=== PATIENT | male | born 1960 | race Caucasian/White ===

== ENCOUNTER 2024-05-28 14:41 | Emergency (ER) | payer OTHER, SELFPAY ==
[2024-05-28 14:54] VITALS: BP 132/67; PULSE 94; RESP 18; TEMP 36.8; O2SAT 94
[2024-05-28 15:15] LABS: EDCOVIDSCREEN Negative (Negative); EDINFLUASCREEN Positive (Negative); EDINFLUBSCREEN Negative (Negative)
--- NOTE | 2024-05-28 15:47 | ED_ITS ---
HPI - General Adult General Chief complaint: Upper Respiratory Infection Stated complaint: Congestion Source: patient Mode of arrival: ambulatory Limitations: no limitations History of Present Illness HPI narrative: Patient presents for evaluation of what he believes to be the common cold. He reports generalized body aches and sinus congestion for the last 3 days. Denies any fever, chills, nausea, vomiting, diarrhea, cough, shortness of breath. He is not aware of any sick contacts. He has not taken any medication to assist with the symptoms. He does smoke cigars. Related Data Allergies Allergy/AdvReac Type Severity Reaction Status Date / Time No Known Allergies Allergy Verified 05/28/24 14:57 Review of Systems Review of Systems: CONSTITUTIONAL: Denies fever, chills, or sweats. EYES: Denies visual changes, redness, or discharge. ENT: Reports sinus congestion. Denies rhinorrhea, sore throat, or otalgia. CARDIOVASCULAR: Denies chest pain, palpitations, or edema. RESPIRATORY: Denies cough or dyspnea. GASTROINTESTINAL: Denies abdominal pain, nausea, vomiting, or diarrhea. GENITOURINARY: Denies dysuria or hematuria. SKIN: Denies rash or itching. MUSCULOSKELETAL: Reports generalized body NEUROLOGIC: Denies headache, numbness, dizziness, or weakness. PSYCHIATRIC: Denies anxiety or depression. [facility] Past Medical History Medical History No pertinent past medical history Surgical History Surgical History No pertinent past surgical history Family History Family History Mother Family history non-contributory Social History Social History Smoking status: Current every day smoker Tobacco type: cigars Substance use: never Gender identity (if verbalized by the patient): Male Spiritual care concerns: No Exam Narrative: GENERAL: Well-appearing, well-nourished, and in no acute distress. HEAD: Normocephalic, atraumatic. EYES: PERRLA and EOMI. ENT: Nares clear, no rhinorrhea or epistaxis. Mucous membranes moist. Oropharynx without tonsillar hypertrophy exudate or other lesions. Bilateral TMs pearly lassiter nonbulging NECK: Supple. No adenopathy or masses. No carotid bruits or JVD CHEST: Clear to auscultation. No respiratory distress. No wheezes rales or rhonchi HEART: Regular rate and rhythm. No murmur heard. Normal peripheral pulses. ABDOMEN: Soft, nontender, nondistended, normal active bowel sounds. EXTREMITIES: Normal range of motion. No edema. SKIN: Warm, dry, no rash. NEURO: No focal deficits. Alert and oriented x3. PSYCH: Normal mood and affect. Course Course Emergency Course: This is a 64-year-old male who presented for evaluation of sinus congestion body aches. Influenza A positive. Will treat with Tamiflu. Increase hydration. Wcyn-emt-kinqzzt agents for symptom management. Follow up with primary provider. Go to the ER for worsening symptoms. Patient in agreement with plan of care. Level of Care: Express Care Visit Vital Signs Vital signs: Vital Signs Temperature 36.8 C 05/28/24 14:54 Pulse Rate 94 05/28/24 14:54 Respiratory Rate 18 05/28/24 14:54 Blood Pressure 132/67 05/28/24 14:54 Pulse Oximetry 94 05/28/24 14:54 Oxygen Delivery Room Air 05/28/24 14:54 Temperature 36.8 C 05/28/24 14:54 Pulse Rate 94 05/28/24 14:54 Respiratory Rate 18 05/28/24 14:54 Blood Pressure 132/67 05/28/24 14:54 Pulse Oximetry 94 05/28/24 14:54 Oxygen Delivery Room Air 05/28/24 14:54 Medical Decision Making Vital Signs Vital Signs: Vital Signs Temperature 36.8 C 05/28/24 14:54 Pulse Rate 94 05/28/24 14:54 Respiratory Rate 18 05/28/24 14:54 Blood Pressure 132/67 05/28/24 14:54 Pulse Oximetry 94 05/28/24 14:54 Oxygen Delivery Room Air 05/28/24 14:54 Temperature 36.8 C 05/28/24 14:54 Pulse Rate 94 05/28/24 14:54 Respiratory Rate 18 05/28/24 14:54 Blood Pressure 132/67 05/28/24 14:54 Pulse Oximetry 94 05/28/24 14:54 Oxygen Delivery Room Air 05/28/24 14:54 Lab Data Labs: Lab Results 05/28/24 Range/Units 15:12 POC Influenza A Ag Positive (Negative) POC Influenza B Ag Negative (Negative) POC SARS CoV-2 Ag Negative (Negative) Discharge Plan Discharge Clinical Impression: Influenza A Patient Disposition: Home, Self-Care Condition: Stable Instructions: Antibiotic Form, Influenza (ED) Patient Language: Telugu Prescriptions: New oseltamivir [Tamiflu] 75 mg capsule 75 mg PO Q12H 5 Days Qty: 10 0RF Follow-up/Referrals: Emil Cormier MD [Physician] - Time of Disposition: 15:46
--- OUTSIDE RECORDS SUMMARY | 2024-05-28 17:05 | XMS_ITS | Referral Summary ---
Author Organization [facility] Address [address] [place] [address] Care Team Providers Care Steaming Machine Operator Name Role Phone SubhashAsha gary Unavailable Unavailable No, Physician Primary Care Provider [phone] Encounters Date Type Department Care Team Description 03/15/2024 11:26 PM AUTOMATIC BUFFING WHEEL FORMER - 03/18/2024 4:43 PM [facility] Hospital Encounter [facility] [address] [place] [address] Franklin Gastelum MD Abegunde, MD Fatmata Mccann Huzaifa, MD Sargsyan, Narine, MD Dizziness (Primary Dx); Generalized weakness Discharge Disposition: Left Against Medical Advice from Last 3 Months Allergies No known active allergies Medications buprenorphine-na loxone (SUBOXONE) 4-[address] 1 Film under the tongue 2 (two) times a day for 4 doses 4 Film 05/23/2021 Active Active Problems Problem Noted Date Diagnosed Date Dizziness 03/16/2024 Encounter for removal of al 10/30/2023 Poison dominic dermatitis 10/30/2023 Closed fracture of right distal fibula Opioid withdrawal 06/19/2019 Small bowel obstruction (CMS/HCC) 01/23/2019 Chronic midline low back pain without sciatica 0 04/05/2018 Chewing tobacco nicotine dependence, uncomplicat ed 04/13/2016 Chronic pain 12/13/2012 Hyperlipidemia 05/16/2011 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 12/03/2010 Back pain 07/03/2008 Abdominal pain, epigastric Immunizations Immunization Administration Dates Next Due Tdap 10/20/2023 Social History Tobacco Use Types Packs/Day Years Used Date Smoking Tobacco: Every Day Cigarettes Smokeless Tobacco: Never Tobacco Cessation:Ready to Q uit: Not Asked; Counseling Given: Not Answered Alcohol Use Standard Drinks/Week Comments No 0 (1 standard drink = 0.6 oz pur e alcohol) [facility] Utilities Answer Date Recorded In the past 12 months has th e electric, gas, oil, or water company threatened to shut off services in your home? No 03/18/2024 Social Connection and Isolation Panel [NHANES] A nswer Date Recorded In a typical week, how many times do you talk on the phone with family, friends, or neighbors? Three times a week 03/18/2024 How often do you get togethe r with friends or relatives? Once a week 03/18/2024 How often do you attend chur ch or evangelical services? Never 03/18/2024 Do you belong to any clubs o r organizations such as sikh groups, unions, fraternal or athletic groups, or school groups? No 03/18/2024 How often do you attend meet ings of the clubs or organizations you belong to? Never 03/18/2024 Are you , , di vorced, , never , or living with a partner? Patient declined 03/18/2024 AUDIT-C Answer Date Recorded Q1: How often do you have a drink containing alc ohol? Monthly or less 03/16/2024 Q2: How many drinks containi ng alcohol do you have on a typical day when you are drinking? 1 or 2 03/16/2024 Q3: How often do you have si x or more drinks on one occasion? Never 03/16/2024 Overall Financial Resource Strain (CARDIA) Answe r Date Recorded How hard is it for you to pa y for the very basics like food, housing, medical care, and heating? Somewhat hard 03/18/2024 PHQ-2 Answer Date Recorded PHQ-2 Score 2 01/23/2019 Hunger Vital Sign Answer Date Recorded Within the past 12 months, y ou worried that your food would run out before you got the money to buy more. Never true 03/18/20 24 Within the past 12 months, t he food you bought just didn't last and you didn't have money to get more. Never true 03/18/2024 PRAPARE - Transportation Answer Date Re corded In the past 12 months, has l ack of transportation kept you from medical appointments or from getting medications? No 03/03 In the past 12 months, has l ack of transportation kept you from meetings, work, or from getting things needed for daily living? No 03/18/2024 Personal Safety Answer Date Recorded Have you ever been in or are you currently in a harmful physical or emotional relationship or is someone making you feel afraid or unsafe? Denies 03/16/2024 Sex and Gender Information Value Date Recorded Sex Assigned at Not on file Legal Sex Male 3:46 PM AUTOMATIC BUFFING WHEEL FORMER Gender Identity Not on file Sexual Orientation Not on file Last Filed Vital Signs Vital Sign Reading Time Taken Comments Blood Pressure 124/69 03/18/2024 8:08 AM AUTOMATIC BUFFING WHEEL FORMER Pulse 59 03/18/2024 8:08 AM AUTOMATIC BU[employer]ING WHEEL FORMER Temperature 37 C (98.6 F) 03/18/2024 8:08 AM AUTOMATIC BUFFING WHEEL FORMER Respiratory Rate 20 03/18/2024 8:08 AM AUTOMATIC BUFFING WHEEL FORMER Oxygen Saturation 98% 03/18/2024 8:08 AM AUTOMATIC BUFFING WHEEL FORMER Inhaled Oxygen Concentration - - Weight 68.9 kg (151 lb 14.4 oz) 024 12:10 PM AUTOMATIC BU[employer]ING WHEEL FORMER Height 170.2 cm (5' 7 ) 03/16/2024 12:1 0 PM AUTOMATIC BU[employer]ING WHEEL FORMER Body Mass Index 23.79 03/16/2024 12:10 PM AUTOMATIC BUFFING WHEEL FORMER Plan of Treatment Not on file Procedures Procedure Name Priority Date/Time Associated Diagnosis Comments [place] CRITICAL CARE ILL/INJURED PATIENT INIT 30-74 MIN Routine 03/18/2024 4:43 PM AUTOMATIC BUFFING WHEEL FORMER TRANSTHORACIC ECHO (TTE) COMPLETE W DOPPLER/CF WO CONTRAST W BUBBLE Routine 03/18/2024 3:25 PM AUTOMATIC BUFFING WHEEL FORMER POCT GLUCOSE DEVICE Routine 03/18/2024 1 1:18 AM AUTOMATIC BUFFING WHEEL FORMER MRI BRAIN WO CONTRAST IP Routine 03/18/2024 10:56 AM AUTOMATIC BUFFING WHEEL FORMER POCT GLUCOSE DEVICE Routine 03/18/2024 8 :07 AM AUTOMATIC BUFFING WHEEL FORMER EGFR Routine 03/18/2024 4:27 AM AUTOMATIC BUFFING WHEEL FORMER DIFFERENTIAL AUTO Routine 03/18/2024 4:2 7 AM AUTOMATIC BUFFING WHEEL FORMER CBC WITH AUTO DIFFERENTIAL Routine 03/18/2024 4:27 AM AUTOMATIC BUFFING WHEEL FORMER RENAL FUNCTION PANEL Routine 03/18/2024 4:27 AM AUTOMATIC BUFFING WHEEL FORMER POCT GLUCOSE DEVICE Routine 03/18/2024 2 :00 AM AUTOMATIC BUFFING WHEEL FORMER POCT GLUCOSE DEVICE Routine 03/17/2024 8 :00 PM AUTOMATIC BUFFING WHEEL FORMER POCT GLUCOSE DEVICE Routine 03/17/2024 4 :28 PM AUTOMATIC BUFFING WHEEL FORMER POCT GLUCOSE DEVICE Routine 03/17/2024 1 1:24 AM AUTOMATIC BUFFING WHEEL FORMER POCT GLUCOSE DEVICE Routine 03/17/2024 7 :55 AM AUTOMATIC BUFFING WHEEL FORMER POCT GLUCOSE DEVICE Routine 03/17/2024 1 :44 AM AUTOMATIC BUFFING WHEEL FORMER POCT GLUCOSE DEVICE Routine 03/16/2024 9 :21 PM AUTOMATIC BUFFING WHEEL FORMER POCT GLUCOSE DEVICE Routine 03/16/2024 4 :47 PM AUTOMATIC BUFFING WHEEL FORMER POCT GLUCOSE DEVICE Routine 03/16/2024 1 2:15 PM AUTOMATIC BUFFING WHEEL FORMER POCT GLUCOSE DEVICE Routine 03/16/2024 8 :39 AM AUTOMATIC BUFFING WHEEL FORMER DRUGS OF ABUSE SCREEN, URINE WITHOUT CONFIRMATION STAT 03/16/2024 5:59 AM AUTOMATIC BUFFING WHEEL FORMER URINALYSIS AND REFLEX TO MICROSCOPIC AND CULTURE STAT 03/16/2024 5:59 AM AUTOMATIC BUFFING WHEEL FORMER POCT GLUCOSE DEVICE Routine 03/16/2024 5 :09 AM AUTOMATIC BUFFING WHEEL FORMER CTA HEAD NECK W WO CONTRAST ED 03/16/2024 3:49 AM AUTOMATIC BUFFING WHEEL FORMER CT HEAD WO CONTRAST ED 03/16/2024 2 :39 AM AUTOMATIC BUFFING WHEEL FORMER HEMOGLOBIN A1C Routine 03/16/2024 12:44 AM AUTOMATIC BUFFING WHEEL FORMER LIPID PANEL Routine 03/16/2024 12:44 AM AUTOMATIC BUFFING WHEEL FORMER EGFR STAT 03/16/2024 12:44 AM AUTOMATIC BUFFING WHEEL FORMER DIFFERENTIAL AUTO STAT 03/16/2024 12: 44 AM AUTOMATIC BUFFING WHEEL FORMER COMPREHENSIVE METABOLIC PANEL STAT 03/16/2024 12:44 AM AUTOMATIC BUFFING WHEEL FORMER CBC WITH AUTO DIFFERENTIAL STAT 03/16/2024 12:44 AM AUTOMATIC BUFFING WHEEL FORMER INFLUENZA A/B, RSV, AND COVID-19 PCR Routine 03/16/2024 12:44 AM AUTOMATIC BUFFING WHEEL FORMER XR CHEST 1 VIEW ED 03/16/2024 12:27 AM AUTOMATIC BUFFING WHEEL FORMER ECG 12-LEAD STAT 03/15/2024 11:54 PM AUTOMATIC BUFFING WHEEL FORMER POCT GLUCOSE DEVICE Routine 03/15/2024 1 0:23 PM AUTOMATIC BUFFING WHEEL FORMER from Last 3 Months Results * TX CRITICAL CARE ILL/INJURED PATIENT INIT 30-74 MIN (03/18/2024 4:43 PM AUTOMATIC BUFFING WHEEL FORMER) Narrative Franklin Gastelum MD - 03/18/2024 4:43 PM AUTOMATIC BUFFING WHEEL FORMER Franklin Gastelum MD 03/20/2024 2:55 PM Critical Care Performed by: Franklin Gastelum MD Authorized by: Franklin Gastelum MD Critical care provider statement: As reflected in the history, physical exam, orders, notes, and/or MDM, I was personally present while the patient was critically ill and provided critical care services for 45 minutes, excluding time involved in separately billable procedures. Critical care was necessary to treat or prevent imminent or life-threatening deterioration of the following condition(s): acute cerebrovascular accident (CVA) us Franklin Gastelum MD IN CLINIC/BEDSIDE ORDERABLES Final Result * TRANSTHORACIC ECHO (TTE) COMPLETE W DOPPLER/CF WO CONTRAST W BUBBLE (03/18/2024 3:25 PM AUTOMATIC BUFFING WHEEL FORMER) Anatomical Region Laterality Modality Ultrasound 03/18/2024 3:00 PM AUTOMATIC BUFFING WHEEL FORMER Narrative 03/18/2024 4:45 PM AUTOMATIC BUFFING WHEEL FORMER [address] [address] Echocardiogram Report Patient Name: HUMPHREY MORALES L : 1960 Study Date: 03/18/2024 3:00:58 PM Gender: M Tech: ELOISA Location: [id number] Ref Provider: SHANNAN WEBSTER Height(Cm): BSA: Weight(Kg): Quality: Adequate Order Provider: SHANNAN WEBSTER PROCEDURES: Echocardiographic Report: Transthoracic echocardiogram with 2D, M-Mode, and color Doppler examination with saline contrast study. INDICATIONS: Dizziness and Stroke. MEASUREMENTS: 2D/MM Value Range Doppler Value Range EF Teich MM 67.8 % [ 52.0 - 72.0 ] ANNETTA Vmax 2.38 cm2 Estimated EF 65-70 % AV Mean PG 5 mmHg LVIDd MM 5.30 cm [ 4.20 - 5.80 ] AV Peak Wenceslao 1.47 m/s [ 1.00 - 1.70 ] LVIDs MM 3.29 cm [ 2.50 - 4.00 ] AV VTI 29.76 cm LVPWd MM 1.50 cm [ 0.60 - 1.00 ] LVOT Diam 2.24 cm IVSd MM 1.33 cm [ 0.60 - 1.00 ] LVOT Peak Wenceslao 0.89 m/s [ 0.70 - 1.10 ] LA Dimension MM 2.86 cm [ 3.00 - 4.00 ] LVOT VTI 19.84 cm AoR Diam MM 3.42 cm [ 3.10 - 3.70 ] MV E Peak Wenceslao 0.80 m/s [ 0.60 - 1.30 ] ACS MM 1.56 cm [ 1.50 - 2.60 ] MV A Peak Wenceslao 0.91 m/s [ 1.00 - 1.20 ] MV Mean PG 1 mmHg MV PHT 52 msec [ 20 - 100 ] MVA 4.30 MV Decel Time 178 msec [ 104 - 258 ] PV Peak Wenceslao 0.74 m/s [ 0.40 - 0.80 ] TR Peak Wenceslao 1.83 m/s [ 1.00 - 2.80 ] TR Peak PG 13 mmHg RVSP 21.00 mmHg [ 10.00 - 36.00 ] E` 0.05 m/s E/E` 15.29 [ <= 10.00 ] PA Pressure 21.00 mmHg [ 10.00 - 36.00 ] 2D/MM Value Range Doppler Value Range - FINDINGS: Atrial Septum: Saline contrast study performed without evidence of right to left shunt. Left Ventricle: Normal left ventricular systolic function with no focal wall motion abnormalities. Normal left ventricular size. Mild concentric left ventricular hypertrophy. Impaired diastolic relaxation Grade I. Ejection Fraction is estimated to be 65-70 %. Left Atrium: The left atrium is normal in size. Right Ventricle: Normal right ventricular size. Normal right ventricular systolic function. Right Atrium: The right atrium is normal in size. Aortic Valve: Normal structure of the aortic valve. Mitral Valve: Mild mitral annular calcification. Trivial regurgitation of the mitral valve. Pulmonic Valve: Normal structure of the pulmonic valve. Tricuspid Valve: Normal right ventricular systolic pressure. Estimated peak RVSP is 25 mmHg. Mild tricuspid regurgitation. Pericardium: Normal pericardium with no significant pericardial effusion. Aorta: Normal aortic root. Sinus of Valsalva is normal. Aortic arch is normal. Descending aorta is normal. IVC: Normal size and normal respiratory collapse consistent with normal right atrial pressure (<5 mmHg). Pulmonary Artery: Normal pulmonary artery size. CONCLUSIONS: Normal left ventricular systolic function with no focal wall motion abnormalities. Normal left ventricular size. Mild concentric left ventricular hypertrophy. Impaired diastolic relaxation Grade I. Ejection Fraction is estimated to be 65-70 %. Saline contrast study performed without evidence of right to left shunt. Mild mitral annular calcification. Trivial regurgitation of the mitral valve. Normal right ventricular systolic pressure. Estimated peak RVSP is 25 mmHg. Mild tricuspid regurgitation. Technically difficult study with suboptimal views. Electronically Signed By: Federico Mckay MD 03/18/2024 4:44:45 PM AUTOMATIC BUFFING WHEEL FORMER 65-70 Procedure Note Federico Mckay MD - 03/18/[address] [address] Echocardiogram Report Patient Name: HUMPHREY MORLAES L : 1960 Study Date: 03/18/2024 3:00:58 PM Gender: M Tech: Location: [id number] Ref Provider: SHANNAN WEBSTER Height(Cm): BSA: Weight(Kg): Quality: Adequate Order Provider: SHANNAN WEBSTER PROCEDURES: Echocardiographic Report: Transthoracic echocardiogram with 2D, M-Mode, and color Dopplerexamination with saline contrast study. INDICATIONS: Dizziness and Stroke. MEASUREMENTS: 2D/MM Value Range Doppler ValueRange EF Teich MM 67.8 % [ 52.0 - 72.0 ] ANNETTA Vmax 2.38cm2 Estimated EF 65-70 % AV Mean PG 5 mmHg LVIDd MM 5.30 cm [ 4.20 - 5.80 ] AV Peak Wenceslao 1.47 m/s[ 1.00 - 1.70 ] LVIDs MM 3.29 cm [ 2.50 - 4.00 ] AV VTI 29.76cm LVPWd MM 1.50 cm [ 0.60 - 1.00 ] LVOT Diam 2.24cm IVSd MM 1.33 cm [ 0.60 - 1.00 ] LVOT Peak Wenceslao 0.89 m/s[ 0.70 - 1.10 ] LA Dimension MM 2.86 cm [ 3.00 - 4.00 ] LVOT VTI 19.84cm AoR Diam MM 3.42 cm [ 3.10 - 3.70 ] MV E Peak Wenceslao 0.80 m/s[ 0.60 - 1.30 ] ACS MM 1.56 cm [ 1.50 - 2.60 ] MV A Peak Wenceslao 0.91 m/s[ 1.00 - 1.20 ] MV Mean PG 1 mmHg MV PHT 52 msec [ 20 - 100 ] MVA 4.30 MV Decel Time 178 msec [ 104 - 258 ] PV Peak Wenceslao 0.74 m/s [ 0.40 - 0.80 ] TR Peak Wenceslao 1.83 m/s [ 1.00 - 2.80 ] TR Peak PG 13 mmHg RVSP 21.00 mmHg [ 10.00 - 36.00 ] E` 0.05 m/s E/E` 15.29 [ <= 10.00 ] PA Pressure 21.00 mmHg [ 10.00 - 36.00 ] 2D/MM Value Range Doppler ValueRange - FINDINGS: Atrial Septum: Saline contrast study performed without evidence of right to left shunt. Left Ventricle: Normal left ventricular systolic function with no focal wall motionabnormalities. Normal left ventricular size. Mild concentric left ventricular hypertrophy.Impaired diastolic relaxation Grade I. Ejection Fraction is estimated to be 65-70 %. Left Atrium: The left atrium is normal in size. Right Ventricle: Normal right ventricular size. Normal right ventricular systolicfunction. Right Atrium: The right atrium is normal in size. Aortic Valve: Normal structure of the aortic valve. Mitral Valve: Mild mitral annular calcification. Trivial regurgitation of the mitralvalve. Pulmonic Valve: Normal structure of the pulmonic valve. Tricuspid Valve: Normal right ventricular systolic pressure. Estimated peak RVSP is 25mmHg. Mild tricuspid regurgitation. Pericardium: Normal pericardium with no significant pericardial effusion. Aorta: Normal aortic root. Sinus of Valsalva is normal. Aortic arch is normal.Descending aorta is normal. IVC: Normal size and normal respiratory collapse consistent with normal rightatrial pressure (<5 mmHg). Pulmonary Artery: Normal pulmonary artery size. CONCLUSIONS: Normal left ventricular systolic function with no focal wall motionabnormalities. Normal left ventricular size. Mild concentric left ventricular hypertrophy.Impaired diastolic relaxation Grade I. Ejection Fraction is estimated to be 65-70 %. Saline contrast study performed without evidence of right to left shunt. Mild mitral annular calcification. Trivial regurgitation of the mitralvalve. Normal right ventricular systolic pressure. Estimated peak RVSP is 25mmHg. Mild tricuspid regurgitation. Technically difficult study with suboptimal views. Electronically Signed By: Federico Mckay MD 03/18/2024 4:44:45 PM AUTOMATIC BUFFING WHEEL FORMER 65-70 us Shannan Webster NP CV ECHO PROCEDURES Final Re sult * POCT glucose (03/18/2024 11:18 AM AUTOMATIC BUFFING WHEEL FORMER) Glucose, POC 194 70 - 199 mg/dL Blood 03/18/2024 11:1 8 AM AUTOMATIC BUFFING WHEEL FORMER 03/18/2024 11:18 AM AUTOMATIC BUFFING WHEEL FORMER us Susie Wild MD LAB POCT ORDERABLES - DEVICE Final Result [facility] [place]) [facility] Department [place] [address] * MRI Brain WO Contrast (03/18/2024 10:56 AM AUTOMATIC BUFFING WHEEL FORMER) Anatomical Region Laterality Modality Head and Neck N/A Magnetic Resonan ce 03/18/2024 12:0 0 PM AUTOMATIC BUFFING WHEEL FORMER Narrative 03/18/2024 12:12 PM AUTOMATIC BUFFING WHEEL FORMER EXAM DESCRIPTION: MRI BRAIN WO CONTRAST REASON FOR STUDY: Patient reports acute dizziness and unspecified type weakness with fall from unspecified height 2 days ago (without provided history of closed head injury). No provided focal neurologic deficits. No provided history of inciting and/or aggravating events. History of diabetes. No provided past surgical history. TECHNIQUE: Multiplanar imaging includes non-contrasted T1, T2, FLAIR, and diffusion with ADC map sequences. Additional sequence(s) sensitive to blood products. Images stored on PACS. COMPARISON: CT head without contrast 03/16/2024, 10/20/2023, 12/09/2020; CTA head/neck 03/16/2024. FINDINGS: CEREBRUM: No acute intra-axial hemorrhage, noting small focus of chronic infarct in the posterior left temporal lobe with associated robust susceptibility artifact consistent with chronic hemorrhagic products and/or hemosiderin staining.. No edema, mass effect, midline shift, or herniation. Scattered chronic lacunar infarcts about the right tejada radiata, body of the right caudate nucleus, and bilateral basal ganglia as well as left thalamus. Senescent mineralization of the lentiform nuclei. WHITE MATTER: As above and below. Otherwise, there is mild periventricular-subcortical as well as a patchy component of pontine T2/FLAIR hyperintense white matter disease, nonspecific, though likely secondary to chronic microvascular ischemia. POSTERIOR FOSSA: As above and below. Tiny chronic lacunar infarct right cerebellar hemisphere. DIFFUSION IMAGING: Focus of restricted diffusion in the paramedian maximal left jean pierre with corresponding T2/FLAIR hyperintensity and T1 hypointensity consistent with acute infarct. EXTRAAXIAL SPACES: No extra-axial fluid collection. No extra-axial mass. BRAIN VOLUME: Mild cerebral volume loss. PITUITARY: Unremarkable. VASCULATURE: No flow disturbance evident on this non angiographic study. Please reference CTA head performed 2 days prior for intracranial angiographic evaluation. CALVARIUM: Unremarkable. ORBITS: No acute abnormality. Ocular lenses and globes normal in conformation and position. PARANASAL SINUSES AND MASTOIDS: Well-aerated with no fluid levels. No mucosa thickening. OTHER: No other significant finding. IMPRESSION: Acute infarct of the left jean pierre. Otherwise, chronic findings as above. These significant findings were reported by telephone to patient's nurse for ordering provider Eulalia Quinn on 03/18/2024 at 1215 . THIS IS AN ELECTRONICALLY VERIFIED FINAL REPORT 03/18/2024 12:12 PM - Electronically signed by Ezio Ng M.D. ELOISA: ELOISA Report ID: [id number] Reading Location: [place] [address] Procedure Note Ezio Ng MD - 03/18/2024 EXAM DESCRIPTION: MRI BRAIN WO CONTRAST REASON FOR STUDY: Patient reports acute dizziness and unspecified type weakness with fall from unspecified height 2 days ago (without provided history of closed head injury). No provided focal neurologic deficits.No provided history of inciting and/or aggravating events. History ofdiabetes. No provided past surgical history. TECHNIQUE: Multiplanar imaging includes non-contrasted T1, T2, FLAIR, and diffusion with ADC map sequences. Additional sequence(s) sensitive toblood products. Images stored on PACS. COMPARISON: CT head without contrast 03/16/2024, 10/20/2023, 12/09/2020;CTA head/neck 03/16/2024. FINDINGS: CEREBRUM: No acute intra-axial hemorrhage, noting small focus of chronic infarct in the posterior left temporal lobe with associated robust susceptibility artifact consistent with chronic hemorrhagic productsand/or hemosiderin staining.. No edema, mass effect, midline shift, orherniation. Scattered chronic lacunar infarcts about the right teajda radiata, body ofthe right caudate nucleus, and bilateral basal ganglia as well as leftthalamus. Senescent mineralization of the lentiform nuclei. WHITE MATTER: As above and below. Otherwise, there is mild periventricular-subcortical as well as a patchy component of pontine T2/FLAIR hyperintense white matter disease, nonspecific, though likely secondary to chronic microvascular ischemia. POSTERIOR FOSSA: As above and below. Tiny chronic lacunar infarctright cerebellar hemisphere. DIFFUSION IMAGING: Focus of restricted diffusion in the paramedianmaximal left jean pierre with corresponding T2/FLAIR hyperintensity and T1 hypointensity consistent with acute infarct. EXTRAAXIAL SPACES: No extra-axial fluid collection. No extra-axialmass. BRAIN VOLUME: Mild cerebral volume loss. PITUITARY: Unremarkable. VASCULATURE: No flow disturbance evident on this non angiographic study. Please reference CTA head performed 2 days prior for intracranialangiographic evaluation. CALVARIUM: Unremarkable. ORBITS: No acute abnormality. Ocular lenses and globes normal in conformation and position. PARANASAL SINUSES AND MASTOIDS: Well-aerated with no fluid levels. Nomucosa thickening. OTHER: No other significant finding. IMPRESSION: Acute infarct of the left jean pierre. Otherwise, chronic findings as above. These significant findings were reported by telephone to patient'snurse for ordering provider Eulalia Quinn on 03/18/2024 at 1215 . THIS IS AN ELECTRONICALLY VERIFIED FINAL REPORT 03/18/2024 12:12 PM - Electronically signed by Ezio Ng M.D. ELOISA: ELOISA Report ID: [id number] Reading Location: [id number] us Eulalia Quinn MD IMG MRI PROCEDURES Final Resul t * POCT glucose (03/18/2024 8:07 AM AUTOMATIC BUFFING WHEEL FORMER) Glucose, POC 183 70 - 199 mg/dL Blood 03/18/2024 8:07 AM AUTOMATIC BUFFING WHEEL FORMER 03/18/2024 8:07 AM AUTOMATIC BUFFING WHEEL FORMER us Susie Wild MD LAB POCT ORDERABLES - DEVICE Final Result [facility] [place] [facility] Department of Laboratories [place] [id number] * eGFR (03/18/2024 4:27 AM AUTOMATIC BUFFING WHEEL FORMER) eGFR >90 >=60 mL/min/1. 73 m2 Comment: Interpretive Data Reference Interval Normal >/= 90 mL/min/1.73m2 Mildly decreased* 60 - 89 mL/min/1.73m2 Mildly to moderately decreased 45 - 59 mL/min/1.73m2 Moderately to severely decreased 30 - 44 mL/min/1.73m2 Severely decreased 15 - 29 mL/min/1.73m2 Kidney Failure < 15 mL/min/1.73m2 *Relative to young adult level Estimated glomerular filtration rate is determined by the 2020 CKD-EPI equation recommended by the National Kid[employer] Foundation (A Unifying Approach to GFR Estimation: Recommendations of the NKF-ASK Task Force on Reassessing the Inclusion of Race in Diagnosing Kidney Disease, JASN 2020). The CKD-EPI equation should not be used for patients with unstable renal function and has not been validated in children and those over 70. Current interpretive data was last reviewed 2021. Blood 03/18/2024 4:27 AM AUTOMATIC BUFFING WHEEL FORMER 03/18/2024 4:55 AM AUTOMATIC BUFFING WHEEL FORMER us Corrina Avilez MD LAB BLOOD ORDERABLES Final Re sult [facility] ([place]) [facility] Department [place] [address] * Differential, auto (03/18/2024 4:27 AM AUTOMATIC BUFFING WHEEL FORMER) Neutrophil abs 3.9 1.5 - 6.5 K/cumm Imm gran abs 0.0 0.0 - 0.1 K/cumm [facility] ([facility]) Lymphocyte abs 3.0 0.8 - 3.3 K/cumm [facility] ([facility]) Monocyte abs 0.6 0.2 - 0.8 K/cumm [facility] ([facility]) Eosinophil abs 0.1 0.0 - 0.5 K/cumm [facility] ([facility]) Basophil abs 0.1 0.0 - 0.1 K/cumm [facility] ([facility]) Neutrophil pct 50.2 % [facility] ([facility]) Comment: Interpretive Data Percent cell count reference ranges are not reported, since discordance with absolute values may lead to misinterpretation of CBC data. Current Interpretive Data was last revised on 2017. Imm gran pct 0.3 % [facility] ([facility]) Comment: Interpretive Data Percent cell count reference ranges are not reported, since discordance with absolute values may lead to misinterpretation of CBC data. Current Interpretive Data was last revised on 2017. Lymphocyte pct 39.4 % [facility] (YAO) Comment: Interpretive Data Percent cell count reference ranges are not reported, since discordance with absolute values may lead to misinterpretation of CBC data. Current Interpretive Data was last revised on 2017. Monocyte pct 7.7 % [facility] ([place]) Comment: Interpretive Data Percent cell count reference ranges are not reported, since discordance with absolute values may lead to misinterpretation of CBC data. Current Interpretive Data was last revised on 2017. Eosinophil pct 1.6 % [facility] ([place]) Comment: Interpretive Data Percent cell count reference ranges are not reported, since discordance with absolute values may lead to misinterpretation of CBC data. Current Interpretive Data was last revised on 2017. Basophil pct 0.8 % [facility] ([place]O) Comment: Interpretive Data Percent cell count reference ranges are not reported, since discordance with absolute values may lead to misinterpretation of CBC data. Current Interpretive Data was last revised on 2017. Blood 03/18/2024 4:27 AM [employer] 03/18/2024 4:55 AM [employer] FORMER Corrina Avilez MD LAB BLOOD ORDERABLES Final Re sult [facility] ([place]O) 1 [facility] Department [place] [address] * (ABNORMAL) CBC with auto differential (03/18/2024 4:27 AM [employer] FORMER) WBC 7.7 3.8 - 9.9 K/cumm Hgb 15.3 13.0 - 17.5 g/dL [facility] ([place]) Hct 44.6 38.9 - 50.3 % [facility] ([place]) Plt 198 150 - 400 K/cumm [facility] ([place]) MPV 9.0(L) 9.1 - 12.3 fL [facility] ([place]) RBC 4.76 4.30 - 5.80 M/cumm [facility] ([place]) MCV 93.7 81.3 - 96.4 fL [facility] ([place]) MCH 32.1 27.1 - 33.3 pg [facility] ([place]) MCHC 34.3 32.3 - 35.7 g/dL [facility] ([place]) RDW CV 11.8 11.1 - 14.9 % [facility] ([place]) RDW SD 40.3 35.7 - 48.1 fL [facility] ([place]) NRBC abs 0.00 0.00 - 0.01 K/cumm [facility] ([place]) Blood 03/18/2024 4:27 AM [employer] FORMER 03/18/2024 4:55 AM [employer] FORMER Corrina Avilez MD LAB BLOOD ORDERABLES Final Re sult JOHANN ARNDT (YAO) 1 [facility] [employer] [place] [address] * (ABNORMAL) Renal function panel (03/18/2024 4:27 AM [employer] FORMER) Sodium 140 135 - 145 mmol/L Potassium, pl 3.3 3.3 - 4.9 mmol/L [facility] ([place]) Chloride 105 97 - 110 mmol/L [facility] ([place]) CO2 25 22 - 32 mmol/L [facility] ([place]) Anion gap 10 2 - 15 mmol/L [facility] ([place]) BUN 11 6 - 25 mg/dL [facility] ([place]) Creatinine 0.66(L) 0.80 - 1.30 mg/dL [facility] ([place]) Glucose 105 70 - 199 mg/dL [facility] (YAO) Comment: Interpretive Data Fasting glucose >/= 126 mg/dl is diagnostic for diabetes. Fasting is defined as no caloric intake for at least 8 hours. Fasting glucose between 100 mg/dl to 125 mg/dl is diagnostic of prediabetes. In a patient with classic symptoms of hyperglycemia or hyperglycemic crisis, a random glucose >/= 200 mg/dl is diagnostic for diabetes. In the absence of unequivocal hyperglycemia, results should be confirmed by repeat testing. The classification and Diagnosis of Diabetes Diabetes Care 2021; 46: S19-S40. Current interpretive data was last revised 2022. Calcium 9.1 8.5 - 10.3 mg/dL [facility] ([place]) Phosphorus, pl 3.9 2.3 - 4.5 mg/dL [facility] ([place]) Albumin 3.6 3.5 - 5.0 g/dL [facility] ([place]) Blood 03/18/2024 4:27 AM [employer]MER 03/18/2024 4:55 AM [employer] FORMER Corrina Avilez MD LAB BLOOD ORDERABLES Final Re sult JOHANN ARNDT (YAO) 1 [facility] [place] [address] * POCT glucose (03/18/2024 2:00 AM AUT[employer] FORMER) Glucose, POC 109 70 - 199 mg/dL Blood 03/18/2024 2:00 AM [employer]MER 03/18/2024 2:00 AM [employer] FORMER Corrina Avilez MD LAB POCT ORDERABLES - DEVICE Final Result JOHANN ARNDT ([place]) 1 [facility] [place] [address] * (ABNORMAL) POCT glucose (03/17/2024 8:00 PM AUT[employer] FORMER) Glucose, POC 218(H) 70 - 199 mg/dL Blood 03/17/2024 8:00 PM [employer] FORMER 03/17/2024 8:00 PM [employer] FORMER Corrina Avilez MD LAB POCT ORDERABLES - DEVICE Final Result JOHANN ARNDT ([place]) 1 [facility] [place] [address] * POCT glucose (03/17/2024 4:28 PM AUT[employer] FORMER) Glucose, POC 196 70 - 199 mg/dL Blood 03/17/2024 4:28 PM [employer] FORMER 03/17/2024 4:28 PM [employer] FORMER Corrina Avilez MD LAB POCT ORDERABLES - DEVICE Final Result JOHANN ARNDT ([place]) 1 [facility] [place] [address] * POCT glucose (03/17/2024 11:24 AM AUTOM[employer] FORMER) Glucose, POC 194 70 - 199 mg/dL Blood 03/17/2024 11:2 4 AM [employer] FORMER 03/17/2024 11:24 AM [employer] FORMER Result Keyshawn Avilez MD LAB POCT ORDERABLES - DEVICE Final Result Performing Organization Address [facility] Co de Phone Number JOHANN ARNDT ([place]) 1 [facility] [place] [address] * POCT glucose (03/17/2024 7:55 AM AUT[employer] FORMER) Glucose, POC 144 70 - 199 mg/dL Blood 03/17/2024 7:55 AM [employer] FORMER 03/17/2024 7:55 AM [employer] FORMER us Corrina Avilez MD LAB POCT ORDERABLES - DEVICE Final Result Performing Organization Address [facility] Co de Phone Number JOHANN ARNDT ([place]) 1 [facility] [place] [address] * POCT glucose (03/17/2024 1:44 AM AUTOM[employer] FORMER) Glucose, POC 145 70 - 199 mg/dL Blood 03/17/2024 1:44 AM [employer] FORMER 03/17/2024 1:44 AM [employer] FORMER Result Keyshawn Avilez MD LAB POCT ORDERABLES - DEVICE Final Result Performing Organization Address [facility] Co de Phone Number JOHANN ARNDT ([place]) 1 [facility] [place] [address] * (ABNORMAL) POCT glucose (03/16/2024 9:21 PM AUT[employer] FORMER) Glucose, POC 241(H) 70 - 199 mg/dL Blood 03/16/2024 9:21 PM [employer] FORMER 03/16/2024 9:21 PM [employer] FORMER Result Keyshawn Avilez MD LAB POCT ORDERABLES - DEVICE Final Result JOHANN ARNDT ([place]) 1 [facility] [place] [address] * (ABNORMAL) POCT glucose (03/16/2024 4:47 PM AUTOM[employer] FORMER) Glucose, POC 217(H) 70 - 199 mg/dL Blood 03/16/2024 4:47 PM [employer] FORMER 03/16/2024 4:47 PM AUTOM[employer] FORMER us Corrina Avilez MD LAB POCT ORDERABLES - DEVICE Final Result JOHANN ARNDT ([place]) 1 [facility] [place] [address] * (ABNORMAL) POCT glucose (03/16/2024 12:15 PM AUTOM[employer] FORMER) Glucose, POC 293(H) 70 - 199 mg/dL Blood 03/16/2024 12:1 5 PM [employer] FORMER 03/16/2024 12:15 PM AUTOM[employer] FORMER us Corrina Avilez MD LAB POCT ORDERABLES - DEVICE Final Result JOHANN ARNDT ([place]) 1 [facility] [place] [address] * POCT glucose (03/16/2024 8:39 AM AUTOM[employer] FORMER) Glucose, POC 199 70 - 199 mg/dL Blood 03/16/2024 8:39 AM [employer] FORMER 03/16/2024 8:39 AM [employer] FORMER us Corrina Avilez MD LAB POCT ORDERABLES - DEVICE Final Result JOHANN ARNDT ([place]) 1 [facility] [place] [address] * (ABNORMAL) Urinalysis reflex to microscopic and culture Urine (03/16/2024 5:59 AM AUT[employer] FORMER) Color, ur Yellow Yellow Clarity, ur Clear Clear [facility] ([place]O) Specific gravity, ur 1.005 1.003 - 1.030 [facility] ([place]) pH, urine 5.0 [facility] (YAO) Comment: Interpretive Data U rine pH is affected by diet, medications, systemic acid-base disturbances, and renal tubular function. pH may affect urinary stone formation. For example, urine pH below 6.0 may help reduce the tendency for calcium phosphate stones and pH greater than 6.0 may reduce the tendency for uric acid stone formation. Source: [facility] Current Interpretive Data was last revised on 2017 Protein, ur ql Trace Negative [facility] (YAO) Glucose, ur ql 4+(A) Negative [facility] (YAO) Ketones, ur Negative Negative [facility] (YAO) Bilirubin, ur Negative Negative [facility] (YAO) Blood, ur Negative Negative [facility] (YAO) Urobilinogen, ur <2.0 <2.0 mg/dL [facility] ([place]O) Nitrite, ur Negative Negative [facility] (YAO) Leukocyte esterase, ur Negative Negative [facility] ([place]O) UA reflex comment Reflex conditions for microscopic UA and culture not met. [facility] (YAO) Urine 03/16/2024 5:59 AM [employer] FORMER 03/16/2024 6:03 AM AUTOM[employer] WHE[employer] FORMER Franklin Gastelum MD LAB MICROBIOLOGY - GENERAL O RDERABLES Final Result [facility] ([place]O) 1 [facility] Department [place] [address] * (ABNORMAL) Drugs of Abuse Screen, Urine without Confirmation (03/16/2024 5:59 AM AUT[employer] FORMER) Amphetamine, ur Screen Positive, presumptive (A) CutOff 500ng/mL Comment: Interpretive Data - Amphetamines: Samples containing greater than 500 ng/mL d-methamphetamine or other cross-reacting amphetamine compounds are reported as positive. Amphetamine immunoassays are subject to significant false positive rates due to cross-reactivity of non-amphetamine drugs. Confirmatory testing required for definitive results. Current Interpretive Data was last reviewed 2022. Barbiturates, ur Not Detected CutOff 200ng/mL [facility] ([place]O) Comment: Interpretive Data - Barbiturates: Samples containing greater than 200 ng/mL secobarbital or other cross-reacting barbiturate compounds are reported as positive. False positive and false negative results are possible. Confirmatory testing required for definitive results. Current Interpretive Data was last reviewed 2022. Benzodiazepines, ur Not Detected CutOff 100ng/mL [facility] ([place]) Comment: Interpretive Data - Benzodiazepines: Samples containing greater than 100 ng/mL nordiazepam or other cross-reacting compounds are reported as positive. False positive and false negative results are possible. Confirmatory testing required for definitive results. Current Interpretive Data was last reviewed 2022. Cannabinoids, ur Screen Positive, presumptive (A) CutOff 50 ng/mL [facility] ([place]) Comment: Interpretive Data - Cannabinoids: Samples containing greater than 50 ng/mL delta-9 THC -COOH or other cross- reacting compounds are reported as positive. False positive and false negative results are possible. Confirmatory testing required for definitive results. Current Interpretive Data was last reviewed 2022. Cocaine, ur Not Detected CutOff 150ng/mL [facility] ([place]) Comment: Interpretive Data - Cocaine: Samples containing greater than 150 ng/mL benzoylecgonine or other cross- reacting compounds are reported as positive. False positive and false negative results are possible. Confirmatory testing required for definitive results. Current Interpretive Data was last reviewed 2022. Fentanyl, Ur Not Detected CutOff 5 ng/mL [facility] ([place]) Comment: Interpretive Data - Fentanyl: Samples containing greater than 5 ng/mL norfentanyl, fentanyl, or other cross-reacting fentanyl compounds are reported as positive. False positive and false negative results are possible. Confirmatory testing required for definitive results. Current Interpretive Data was last reviewed 2023. Methadone, ur Not Detected CutOff 300ng/mL [facility] (YAO) Comment: Interpretive Data - Methadone: Samples containing greater than 300 ng/mL d,l-methadone or other cross-reacting compounds are reported as positive. False positive and false negative results are possible. Confirmatory testing required for definitive results. Current Interpretive Data was last reviewed 2022. Opiates, ur Not Detected CutOff 300ng/mL JOHANN ARNDT (YAO) Comment: Interpretive Data - Opiates: Samples containing greater than 300 ng/mL morphine or other cross-reacting compounds are reported as positive. False positive and false negative results are possible. Confirmatory testing required for definitive results. Current Interpretive Data was last reviewed 2022. Oxycodone, ur Not Detected CutOff 100ng/mL JOHANN ARNDT (YAO) Comment: Interpretive Data - Oxycodone: Samples containing greater than 100 ng/mL oxycodone or other cross-reacting compounds are reported as positive. False positive and false negative results are possible. Confirmatory testing required for definitive results. Current Interpretive Data was last reviewed 2022. Phencyclidine, ur Not Detected CutOff 25 ng/mL JOHANN ARND[facility] (YAO) Comment: Interpretive Data - Phencyclidine: Samples containing greater than 25 ng/mL phencyclidine or other cross-reacting compounds are reported as positive. False positive and false negative results are possible. Confirmatory testing required for definitive results. Current Interpretive Data was last reviewed 2022. Urine Creatinine 76 mg/dL MY ARNDT (YAO) Comment: Interpretive Data Urine Creatinine: < 10 mg/dL is extremely dilute = or > 10 but < 20 mg/dL is dilute = or > 20 mg/dL is normal Current Interpretive Data was last revised on 2017. Urine 03/16/2024 5:59 AM [employer] FORMER 03/16/2024 6:03 AM [employer]OM[employer] WHE[employer] FORMER Narrative JOHANN ARNDT (YAO) - 03/16/2024 6:50 AM AUTOMATIC [employer] WHE[employer] FORMER Drug of Abuse screening is performed by immunoassay for medical purposes only. This is not to be used for Pain Management purposes. Franklin Gastelum MD LAB URINE ORDERABLES Final R esult JOHANN ARNDT ([place]) 1 [facility] Department [place] [address] * (ABNORMAL) POCT glucose (03/16/2024 5:09 AM AUTOM[employer] FORMER) Glucose, POC 356(H) 70 - 199 mg/dL Blood 03/16/2024 5:09 AM [employer] FORMER 03/16/2024 5:09 AM AUTOMATIC [employer] WHE[employer] FORMER us Theresa Benitez MD LAB POCT ORDERABLES - DE VICE Final Result JOHANN ARNDT ([place]) 1 [facility] Department [place] [address] * CTA Head Neck W WO Contrast (03/16/2024 3:49 AM AUTOMAT[employer] WHE[employer] FORMER) Anatomical Region Laterality Modality Head and Neck N/A Computed Tomogra phy 03/16/2024 4:14 AM [employer]OM[employer] WHE[employer] FORMER Narrative 03/16/2024 4:36 AM [employer]OMAT[employer]ING WHE[employer] FORMER EXAM DESCRIPTION: CTA HEAD NECK W WO CONTRAST REASON FOR STUDY: Vertigo, central TECHNIQUE: Axial dynamic scanning technique with dynamic contrast enhancement through the intracranial and extracranial carotid and vertebral arteries. Multiplanar reconstruction. All stenosis measurements are based on NASCET criteria. 3D MIP images rendered on scanning unit and reviewed at time of interpretation. Automated exposure control was used as a dose optimization technique for this examination. CONTRAST TYPE/DOSE: 100mL of IOVERSOL 350 MG IODINE/ML INTRAVENOUS SYRINGE injected via intravenous COMPARISON: Head CT of March 16, 2014 . FINDINGS: INTRACRANIAL VESSELS [place]: The duxvpu-sd-Dpburm is intact. ANTERIOR CIRCULATION: The carotid siphons are patent. The anterior cerebral arteries are patent. The anterior communicating artery is patent. The middle cerebral arteries are patent. POSTERIOR CIRCULATION: d there is origin of the posterior cerebral arteries bilaterally. The posterior cerebral arteries are patent. The basilar artery is patent. The distal vertebral arteries are patent. The vertebral arteries are codominant. CAROTID CTA AORTIC ARCH: There is atherosclerosis of the aorta. There is normal three-vessel anatomy. RIGHT CAROTIDS: The right common carotid artery and internal carotid artery are patent. There is atherosclerosis of the right carotid bulb and proximal right internal carotid artery with approximately 71% stenosis of the proximal right internal carotid artery. No dissection. LEFT CAROTIDS: The left common and internal carotid arteries are patent. No significant stenosis. No dissection. RIGHT VERTEBRAL: Patent. No significant stenosis. No dissection. LEFT VERTEBRAL: Patent. No significant stenosis. No dissection. NON-VASCULAR SOFT TISSUES: No mass or adenopathy. No thyroid nodule greater than 1 cm. BONES: There is mild degenerative change throughout the cervical spine. LUNG APICES: The lung apices are clear. OTHER: No other significant finding. IMPRESSION: INTRACRANIAL CTA: No large vessel occlusion. CAROTID CTA: Atherosclerosis of the right carotid bulb and proximal right internal carotid artery with approximately 71% stenosis of the proximal right internal carotid artery. THIS IS AN ELECTRONICALLY VERIFIED FINAL REPORT 03/16/2024 4:36 AM - Electronically signed by Riya Schuster M.D. SN: Report ID: [id number] Reading Location: [id number] Procedure Note Riya Schuster MD - 03/16/2024 EXAM DESCRIPTION: CTA HEAD NECK W WO CONTRAST REASON FOR STUDY: Vertigo, central TECHNIQUE: Axial dynamic scanning technique with dynamic contrastenhancement through the intracranial and extracranial carotid and vertebral arteries. Multiplanar reconstruction. All stenosis measurements are based on NASCET criteria. 3D MIP images rendered on scanning unit and reviewed at time of interpretation. Automated exposure control was used as a dose optimization technique forthis examination. CONTRAST TYPE/DOSE: 100mL of IOVERSOL 350 MG IODINE/ML INTRAVENOUSSYRINGE injected via intravenous COMPARISON: Head CT of March 16, 2014 . FINDINGS: INTRACRANIAL VESSELS [place]: The newric-ne-Ivviuc is intact. ANTERIOR CIRCULATION: The carotid siphons are patent. The anteriorcerebral arteries are patent. The anterior communicating artery is patent. The middle cerebral arteries are patent. POSTERIOR CIRCULATION: d there is origin of the posterior cerebral arteries bilaterally. The posterior cerebral arteries are patent. The basilar artery is patent. The distal vertebral arteries are patent.The vertebral arteries are codominant. CAROTID CTA AORTIC ARCH: There is atherosclerosis of the aorta. There is normal three-vessel anatomy. RIGHT CAROTIDS: The right common carotid artery and internal carotidartery are patent. There is atherosclerosis of the right carotid bulb andproximal right internal carotid artery with approximately 71% stenosis of theproximal right internal carotid artery. No dissection. LEFT CAROTIDS: The left common and internal carotid arteries are patent.No significant stenosis. No dissection. RIGHT VERTEBRAL: Patent. No significant stenosis. No dissection. LEFT VERTEBRAL: Patent. No significant stenosis. No dissection. NON-VASCULAR SOFT TISSUES: No mass or adenopathy. No thyroid nodulegreater than 1 cm. BONES: There is mild degenerative change throughout the cervical spine. LUNG APICES: The lung apices are clear. OTHER: No other significant finding. IMPRESSION: INTRACRANIAL CTA: No large vessel occlusion. CAROTID CTA: Atherosclerosis of the right carotid bulb and proximal right internalcarotid artery with approximately 71% stenosis of the proximal right internalcarotid artery. THIS IS AN ELECTRONICALLY VERIFIED FINAL REPORT 03/16/2024 4:36 AM - Electronically signed by Riya Schuster M.D. SN: SN Report ID: [id number] Reading Location: [place] [address] Franklin Gastelum MD IMG CT PROCEDURES Final Resu lt * CT Head WO Contrast (03/16/2024 2:39 AM AUTOMATIC [employer]ING WHE[employer] FORMER) Anatomical Region Laterality Modality Head and Neck N/A Computed Tomogra phy 03/16/2024 2:49 AM AUTOMATIC [employer] WHE[employer] FORMER Narrative 03/16/2024 2:52 AM AUTOMATIC BU[employer]ING WHEEL FORMER EXAM DESCRIPTION: CT HEAD WO CONTRAST REASON FOR STUDY: Dizziness, non-specific Pt states he fell today and feels weak. Pt states he thinks it's his diabetes because he ate too many sweets TECHNIQUE: Axial images acquired through the brain without intravenous contrast. Coronal and sagittal reformats were performed. Images stored on PACS. Automated mA/kV exposure control was used as a dose optimization technique for this examination and patient examination was performed in strict accordance with principles of ALARA. COMPARISON: CT of the head of October 20, 2023 and December 09, 2020. FINDINGS: BRAIN: There is no midline shift, mass or mass effect. The ventricles, cisterns and sulci are globally and proportionally prominent consistent with atrophy. There is normal differentiation of the lassiter-white matter. There is no intracranial hemorrhage. Stable lacunar infarcts are seen of the basal ganglia. There is an old appearing focal infarct seen of the anterior right centrum semiovale. White matter attenuation is otherwise normal. EXTRA-AXIAL SPACES: No fluid collections. No masses. CALVARIUM: No fracture. SINUSES/MASTOIDS: No fluid or mucosal thickening. ORBITS: No significant abnormality. OTHER: No other significant abnormality. IMPRESSION: No acute intracranial abnormality. Global atrophy and white matter changes consistent with small-vessel ischemic disease. Old lacunar infarcts of the basal ganglia. Old appearing focal infarct of the anterior right centrum semiovale. THIS IS AN ELECTRONICALLY VERIFIED FINAL REPORT 03/16/2024 2:52 AM - Electronically signed by Riya Schuster M.D. SN: Report ID: [id number] Reading Location: [place] [address] Procedure Note Riya Schuster MD - 03/16/2024 EXAM DESCRIPTION: CT HEAD WO CONTRAST REASON FOR STUDY: Dizziness, non-specific Pt states he fell today and feels weak. Pt states he thinks it's hisdiabetes because he ate too many sweets TECHNIQUE: Axial images acquired through the brain without intravenous contrast. Coronal and sagittal reformats were performed. Images storedon PACS. Automated mA/kV exposure control was used as a dose optimization technique for this examination and patient examination was performed instrict accordance with principles of ALARA. COMPARISON: CT of the head of October 20, 2023 and December 09, 2020. FINDINGS: BRAIN: There is no midline shift, mass or mass effect. The ventricles, cisterns and sulci are globally and proportionally prominent consistentwith atrophy. There is normal differentiation of the lassiter-white matter. Thereis no intracranial hemorrhage. Stable lacunar infarcts are seen of the basal ganglia. There is an old appearing focal infarct seen of the anteriorright centrum semiovale. White matter attenuation is otherwise normal. EXTRA-AXIAL SPACES: No fluid collections. No masses. CALVARIUM: No fracture. SINUSES/MASTOIDS: No fluid or mucosal thickening. ORBITS: No significant abnormality. OTHER: No other significant abnormality. IMPRESSION: No acute intracranial abnormality. Global atrophy and white matter changes consistent with small-vesselischemic disease. Old lacunar infarcts of the basal ganglia. Old appearing focal infarct of the anterior right centrum semiovale. THIS IS AN ELECTRONICALLY VERIFIED FINAL REPORT 03/16/2024 2:52 AM - Electronically signed by Riya Schuster M.D. SN: SN Report ID: [id number] Reading Location: [place] [address] Franklin Gastelum MD IMG CT PROCEDURES Final Resu lt * Influenza A/B, RSV, and COVID-19 PCR Nasopharyngeal (03/16/2024 12:44 AM [employer] FORMER) COVID-19 RNA Negative Negative Influenza A RNA Negative Negative [facility] ([place]) Influenza B RNA Negative Negative [facility] ([place]) RSV RNA Negative Negative [facility] ([place]) Comment: Interpretive data: Testing performed by [facility]. This test is performed using the [employer] Prime Xpert Xpress CoV-2/Flu/RSV plus assay. This is a multiplex, real- time reverse transcriptase PCR assay intended for the qualitative detection of nucleic acid from SARS-CoV-2, influenza A, influenza B, and respiratory syncytial virus. This assay has been cleared by the [place] Food and Drug administration. The performance characteristics have been verified by the [facility]. Results must be considered in the clinical context, and a negative result does not rule out infection. 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 73 m2 Comment: Interpretive Data Reference Interval Normal >/= 90 mL/min/1.73m2 Mildly decreased* 60 - 89 mL/min/1.73m2 Mildly to moderately decreased 45 - 59 mL/min/1.73m2 Moderately to severely decreased 30 - 44 mL/min/1.73m2 Severely decreased 15 - 29 mL/min/1.73m2 Kidney Failure < 15 mL/min/1.73m2 *Relative to young adult level Estimated glomerular filtration rate is determined by the 2020 CKD-EPI equation recommended by the National Kidney Foundation (A Unifying Approach to GFR Estimation: Recommendations of the NKF-ASK Task Force on Reassessing the Inclusion of Race in Diagnosing Kidney Disease, JASN 2020). The CKD-EPI equation should not be used for patients with unstable renal function and has not been validated in children and those over 70. Current interpretive data was last reviewed 2021. Blood 03/16/2024 12:4 4 AM AUTOMATIC BUFFING WHEEL FORMER 03/16/2024 12:52 AM AUTOMATIC BUFFING WHEEL FORMER us Franklin Gastelum MD LAB BLOOD ORDERABLES Final R esult [facility] ([place]) 1 [facility] Department [place] [address] * (ABNORMAL) Differential, auto (03/16/2024 12:44 AM AUTOMATIC BUFFING WHEEL FORMER) Neutrophil abs 8.1(H) 1.5 - 6.5 K/cumm Imm gran abs 0.0 0.0 - 0.1 K/cumm [facility] ([place]) Lymphocyte abs 2.6 0.8 - 3.3 K/cumm [facility] ([place] Monocyte abs 0.9(H) 0.2 - 0.8 K/cumm [facility] [place] Eosinophil abs 0.1 0.0 - 0.5 K/cumm [facility] [place] Basophil abs 0.0 0.0 - 0.1 K/cumm [facility] [place] Neutrophil pct 69.0 % [facility] ([place]) Comment: Interpretive Data Percent cell count reference ranges are not reported, since discordance with absolute values may lead to misinterpretation of CBC data. Current Interpretive Data was last revised on 2017. Imm gran pct 0.3 % [facility] ([place]) Comment: Interpretive Data Percent cell count reference ranges are not reported, since discordance with absolute values may lead to misinterpretation of CBC data. Current Interpretive Data was last revised on 2017. Lymphocyte pct 22.1 % [facility] ([place] Comment: Interpretive Data Percent cell count reference ranges are not reported, since discordance with absolute values may lead to misinterpretation of CBC data. Current Interpretive Data was last revised on 2017. Monocyte pct 7.6 % [facility] ([place] Comment: Interpretive Data Percent cell count reference ranges are not reported, since discordance with absolute values may lead to misinterpretation of CBC data. Current Interpretive Data was last revised on 2017. Eosinophil pct 0.7 % [facility] ([place] Comment: Interpretive Data Percent cell count reference ranges are not reported, since discordance with absolute values may lead to misinterpretation of CBC data. Current Interpretive Data was last revised on 2017. Basophil pct 0.3 % [facility] ([place]) Comment: Interpretive Data Percent cell count reference ranges are not reported, since discordance with absolute values may lead to misinterpretation of CBC data. Current Interpretive Data was last revised on 2017. Blood 03/16/2024 12:4 4 AM AUTOMATIC BUFFING WHEEL FORMER 03/16/2024 12:52 AM AUTOMATIC BUFFING WHEEL FORMER us Franklin Gastelum MD LAB BLOOD ORDERABLES Final R esult [facility] ([place]) 1 [facility] Department of Laboratories [place], [place] [id number] * (ABNORMAL) CBC with auto differential (03/16/2024 12:44 AM AUTOMATIC BUFFING WHEEL FORMER) WBC 11.8(H) 3.8 - 9.9 K/cumm Hgb 16.3 13.0 - 17.5 g/dL [facility] ([place]) Hct 47.5 38.9 - 50.3 % [facility] [place] Plt 233 150 - 400 K/cumm [facility] [place]) MPV 9.1 9.1 - 12.3 fL [facility] [place]) RBC 5.11 4.30 - 5.80 M/cumm [facility] [place]) MCV 93.0 81.3 - 96.4 fL [facility] [place]) MCH 31.9 27.1 - 33.3 pg [facility] [place]) MCHC 34.3 32.3 - 35.7 g/dL [facility] [place]) RDW CV 11.6 11.1 - 14.9 % [facility] [place] RDW SD 39.8 35.7 - 48.1 fL [facility] ([place]) NRBC abs 0.00 0.00 - 0.01 K/cumm [facility] ([place]) Blood 03/16/2024 12:4 4 AM AUTOMATIC BUFFING WHEEL FORMER 03/16/2024 12:52 AM AUTOMATIC BUFFING WHEEL FORMER Franklin Gastelum MD LAB BLOOD ORDERABLES Final R esult [facility]) 1 [facility] Department [place] [address] * (ABNORMAL) Hemoglobin A1c (03/16/2024 12:44 AM AUTOMATIC BUFFING WHEEL FORMER) Hgb A1C 10.4(H) 4.0 - 5.6 % Estimated Average Glucose 252 mg/dL [facility] ([place]) Comment: The ADA recommends reporting an estimated Average Glucose (eAG) with all Hemoglobin A1c results using the equation derived from a study of 507 normal and diabetic adults. Minority populations were underrepresented and children were not included. (Diabetes Care 31:3822-2922, 2008). The eAG is not equivalent to a fasting glucose. Blood 03/16/2024 12:4 4 AM AUTOMATIC BUFFING WHEEL FORMER 03/16/2024 3:46 PM AUTOMATIC BUFFING WHEEL FORMER Corrina Avilez MD LAB BLOOD ORDERABLES Final Re sult [facility] ([place]) 1 [facility] Department [place] [address] * (ABNORMAL) Lipid panel (03/16/2024 12:44 AM AUTOMATIC BUFFING WHEEL FORMER) Cholesterol 256(H) 30 - 199 mg/dL Comment: Interpretive Data Ages < or = 19 years Acceptable: <170 mg/dL Borderline high: 170-199 mg/dL High: >or= 200 mg/dL Ages > or = 20 years Desirable: <200 mg/dL Borderline high: 200-239 mg/dL High: >or= 240 mg/dL Literature References: 1. Expert Panel on Integrated Guidelines for Cardiovascular Health and Risk Reduction in Children and Adolescents. Pediatrics 2011;128:S213 2. NCEP Expert Panel. Circulation 2004;110:227 Current Interpretive Data was last revised on 2017. Triglycerides 128 <=149 mg/dL [facility]) Comment: Interpretive Data Ages < or = 9 years Acceptable: <75 mg/dL Borderline high: 75-99 mg/dL High: >or= 100 mg/dL Ages 10 to 20 years Acceptable: <90 mg/dL Borderline high: 90-129 mg/dL High: >or= 130 mg/dL Ages > or = 20 years Desirable: <150 mg/dL Borderline high: 150-199 mg/dL High: 200-499 mg/dL Very high: >or= 499 mg/dL Literature References: 1. Expert Panel on Integrated Guidelines for Cardiovascular Health and Risk Reduction in Children and Adolescents. Pediatrics 2011;128:S213 2. NCEP Expert Panel. Circulation 2004;110:227 Current Interpretive Data was last revised on 2017. HDL 60 >=40 mg/dL [facility] ([place]) Comment: Interpretive Data Ages < or = 19 years Acceptable: >45 mg/dL Borderline low: 40-45 mg/dL Low: <40 mg/dL Ages > or = 20 years Desirable: >or= 60 mg/dL Low: <40 mg/dL Literature References: 1. Expert Panel on Integrated Guidelines for Cardiovascular Health and Risk Reduction in Children and Adolescents. Pediatrics 2011;128:S213 2. NCEP Expert Panel. Circulation 2004;110:227 Current Interpretive Data was last revised on 2017. LDL, calculated 173(H) <=129 mg/dL [facility] ([place]) Comment: Interpretive Data Ages < or = 19 years Acceptable: <110 mg/dL Borderline high: 110-129 mg/dL High: >or= 130 mg/dL Ages > or = 20 years Optimal: <100 mg/dL Near optimal: 100-129 mg/dL Borderline high: 130-159 mg/dL High: >160 mg/dL Calculated using the Sher LDL-C estimating equation. This equation was implemented on 2023. Prior to this date LDL-C was estimated using the Friedewald equation. Literature References: 1. Expert Panel on Integrated Guidelines for Cardiovascular Health and Risk Reduction in Children and Adolescents. Pediatrics 2011;128:S213 2. NCEP Expert Panel. Circulation 2004;110:227 3. Sher [place] et al. JOSIE Cardiol. 2019August 01;5(5):540-548. doi: 10.1001/jamacardio.2020.0013 Current Interpretive Data was last revised on 2023. Non-HDL Cholesterol 196 mg/dL [facility] ([place]) Comment: Interpretive Data Ages < or = 19 years Acceptable: <120 mg/dL Borderline high: 120-144 mg/dL High: >145 mg/dL Ages > or = 20 years When triglycerides are >200 mg/dL, Non-HDL cholesterol is a secondary target of therapy with treatment goals that are 30 mg/dL greater than the LDL cholesterol target. Literature References: 1. Expert Panel on Integrated Guidelines for Cardiovascular Health and Risk Reduction in Children and Adolescents. Pediatrics 2011;128:S213 2. NCEP Expert Panel. Circulation 2004;110:227 Current Interpretive Data was last revised on 2017. Chol/HDL ratio 4 [facility] ([place]) Blood 03/16/2024 12:4 4 AM AUTOMATIC BUFFING WHEEL FORMER 03/16/2024 10:58 AM AUTOMATIC BUFFING WHEEL FORMER us Elualia Quinn MD LAB BLOOD ORDERABLES Final Res ult [facility] ([place]) 1 [facility] Department [place] [address] * (ABNORMAL) Comprehensive metabolic panel (03/16/2024 12:44 AM AUTOMATIC BUFFING WHEEL FORMER) Sodium 134(L) 135 - 145 mmol/L Potassium, pl 3.9 3.3 - 4.9 mmol/L [facility] [place]) Chloride 99 97 - 110 mmol/L [facility] [place] CO2 26 22 - 32 mmol/L [facility] [place] Anion gap 9 2 - 15 mmol/L [facility] [place] BUN 14 6 - 25 mg/dL [facility] [place] Creatinine 0.61(L) 0.80 - 1.30 mg/dL [facility] [place]) Glucose 258(H) 70 - 199 mg/dL [facility] ([place]) Comment: Interpretive Data Fasting glucose >/= 126 mg/dl is diagnostic for diabetes. Fasting is defined as no caloric intake for at least 8 hours. Fasting glucose between 100 mg/dl to 125 mg/dl is diagnostic of prediabetes. In a patient with classic symptoms of hyperglycemia or hyperglycemic crisis, a random glucose >/= 200 mg/dl is diagnostic for diabetes. In the absence of unequivocal hyperglycemia, results should be confirmed by repeat testing. The classification and Diagnosis of Diabetes Diabetes Care 2021; 46: S19-S40. Current interpretive data was last revised 2022. Calcium 9.6 8.5 - 10.3 mg/dL [facility] [place]) Bilirubin, total 0.3 0.1 - 1.2 mg/dL [facility] [place]) Protein, pl 6.6 6.5 - 8.5 g/dL [facility] [place]) Albumin 4.0 3.5 - 5.0 g/dL [facility] [place]) Alk phos 84 40 - 130 Units/L [facility] [place] ALT 17 7 - 55 Units/L [facility] [place] AST 12 10 - 50 Units/L [facility] ([place]) Comment:Slightly Hemolyzed S pecimen Blood 03/16/2024 12:4 4 AM AUTOMATIC BUFFING WHEEL FORMER 03/16/2024 12:52 AM AUTOMATIC BUFFING WHEEL FORMER us Franklin Gastelum MD LAB BLOOD ORDERABLES Final R esult [facility] [place]) 1 [facility] Department [place] [address] * XR Chest 1 Vw Portable (03/16/2024 12:27 AM AUTOMATIC BUFFING WHEEL FORMER) Anatomical Region Laterality Modality Body, Chest N/A Computed Radiogr aphy 03/16/2024 12:3 7 AM AUTOMATIC BUFFING WHEEL FORMER Narrative 03/16/2024 12:37 AM AUTOMATIC BUFFING WHEEL FORMER EXAM DESCRIPTION: XR CHEST 1 VIEW REASON FOR STUDY: general weakness Pt states he fell today and feels weak. Pt states he thinks it's his diabetes because he ate too many sweets. Blood sugar 241 in triage. Pt denies any injury from the fall Current smoker Hx of diabetes No surgery No hx of cancer TECHNIQUE: 1 radiographic view(s) of the chest. COMPARISON: None FINDINGS: LUNGS: No focal opacity, pleural effusion, or pneumothorax. Poor inspiratory result and elevation of the left hemidiaphragm with bibasilar atelectasis. HEART/MEDIASTINUM: Cardiac silhouette normal in size. Mediastinal and hilar contours appear normal. LINES/TUBES: None. BONES: No acute osseous abnormality. IMPRESSION: No acute cardiopulmonary abnormality. THIS IS AN ELECTRONICALLY VERIFIED FINAL REPORT 03/16/2024 12:37 AM - Electronically signed by Gianni Churchill M.D. KT: JM Report ID: [id number] Reading Location: [id number] Procedure Note Gianni Churchill MD - 03/16/2024 EXAM DESCRIPTION: XR CHEST 1 VIEW REASON FOR STUDY: general weakness Pt states he fell today and feels weak. Pt states he thinks it's hisdiabetes because he ate too many sweets. Blood sugar 241 in triage. Pt denies any injury from the fall Current smoker Hx of diabetes No surgery No hx of cancer TECHNIQUE: 1 radiographic view(s) of the chest. COMPARISON: None FINDINGS: LUNGS: No focal opacity, pleural effusion, or pneumothorax. Poor inspiratory result and elevation of the left hemidiaphragm with bibasilar atelectasis. HEART/MEDIASTINUM: Cardiac silhouette normal in size. Mediastinal andhilar contours appear normal. LINES/TUBES: None. BONES: No acute osseous abnormality. IMPRESSION: No acute cardiopulmonary abnormality. THIS IS AN ELECTRONICALLY VERIFIED FINAL REPORT 03/16/2024 12:37 AM - Electronically signed by Gianni Churchill M.D. KT: JM Report ID: [id number] Reading Location: [place] [address] Franklin Gastelum MD IMG XR PROCEDURES Final Resu lt * ECG 12 lead (03/15/2024 11:54 PM AUTOMATIC BUFFING WHEEL FORMER) 03/15/2024 11:5 4 PM AUTOMATIC BUFFING WHEEL FORMER Narrative [facility] - 03/16/2024 11:26 AM AUTOMATIC BUFFING WHEEL FORMER Vent Rate: 60 bpm RR Interval: 995 msec TX Interval: 169 msec QRS Duration: 84 msec QT Interval: 426 msec QTC Interval: 426 msec P-R-T [place]: 48 - -4 - 57 degrees IMPRESSION: SINUS RHYTHM NORMAL ECG Electronically Signed By: Dr. Manpreet Mead Franklin Gsatelum MD ECG ORDERABLES Final Result Performing Organization Address [facility] Co de Phone Number [facility] [employer] [facility] * (ABNORMAL) POCT glucose (03/15/2024 10:23 PM AUTOMATIC BUFFING WHEEL FORMER) Glucose, POC 241(H) 70 - 199 mg/dL Blood 03/15/2024 10:2 3 PM AUTOMATIC BUFFING WHEEL FORMER 03/15/2024 10:23 PM AUTOMATIC BUFFING WHEEL FORMER [employer] Unknown LAB POCT ORDERABLES - DEVICE F inal Result [facility] ([place]) 1 [facility] Department [place] [address] from Last 3 Months Insurance [facility] Advance Directives For more information, please contact: [phone] * Full Code (Latest Code Status on File) Date Activated Date Inactivated Comments 03/16/2024 4:55 AM 03/18/2024 8:48 PM * Full Code Date Activated Date Inactivated Comments 01/25/2019 8:31 AM 01/26/2019 1:44 PM Care Teams Steaming Machine Operator Relationship Specialty Start Date End Date No, Physician PCP - General 10/20/23 Asha Cullen [facility] 03/24/20
--- OUTSIDE RECORDS SUMMARY | 2024-05-28 17:06 | XMS_ITS | Clinical Summary ---
Author Organization [facility] Address [address] [place] [address] Phone Care Team Providers Care Manager Lvn Name Role Phone Gabriele Solis MD Primary Care Provider [phone] Allergies No known active allergies Medications metFORMIN (GLUCOPHAGE) 500 MG Tablet Take 1 Tab by mouth 2 times daily (with meals). 180 Tab 10/10/2018 Active Encounters Date Type Department Care Team Description 04/12/2024 Travel from Last 3 Months Family History Medical History Relation Name Comments OTHER Father ALS- ANEUDY GEHRIG 'S DISEASE Diabetes Mother Relation Name Status Comments Father Mother Alive Social History Tobacco Use Types Packs/Day Years Used Date Smoking Tobacco: Every Day Cigarettes Cigars Smokeless Tobacco: Never Tobacco Cessation:Ready to Q uit: Yes; Counseling Given: Yes Comments:Stopped cigarettes but now smokes cigars Alcohol Use Standard Drinks/Week Comments Yes 1 (1 standard drink = 0.6 oz pur e alcohol) Sex and Gender Information Value Date Recorded Sex Assigned at Not on file Legal Sex Male 7:31 PM CDT Gender Identity Not on file Sexual Orientation Not on file Last Filed Vital Signs Vital Sign Reading Time Taken Comments Blood Pressure 162/63 10/12/2020 12:22 PM CDT Pulse 76 10/12/2020 12:22 PM CDT Temperature 36.9 C (98.4 F) 10/12/2020 12:22 PM CDT Respiratory Rate 20 10/12/2020 12:22 PM CDT Oxygen Saturation 100% 10/12/2020 12:22 PM CDT Inhaled Oxygen Concentration - - Weight 68 kg (150 lb) 04/12/2024 9:00 AM SENIOR STATISTICAL PROGRAMMER Height 170.2 cm (5' 7 ) 04/12/2024 9:00 AM SENIOR STATISTICAL PROGRAMMER Body Mass Index 23.49 04/12/2024 9:00 AM SENIOR STATISTICAL PROGRAMMER Plan of Treatment Health Maintenance Due Date Last Done Comments Hepatitis C Virus (HCV) Screening 1961 TdaP Immunization 1961 Pneumococcal Immunization (5 0+ years) (1 of 2 - PCV) 02/13/1980 Colonoscopy 2006 Colorectal Cancer Screening 2006 Cologuard 2011 Immunochemical Fecal Occult Blood 2011 Zoster Immunization (1 of 2) 2011 PSA Discussion 02/13/2016 Influenza Immunization (#1) 2023 SARS-COV-2 Immunization ( - season) 2023 Respiratory Syncytial Virus (RSV) Immunization (Adult) (1 - 1-dose 75+ series) 02/13/2036 Hepatitis B Immunization Aged Out No longer eligible based on patient's age to complete this topic Meningococcal Immunization (ACWY) Aged Out No longer eligible based on patient's age to complete this topic Rotavirus Immunization Aged Out No lo nger eligible based on patient's age to complete this topic Insurance [place]ICAID [place] Care Teams Manager Lvn Relationship Specialty Start Date End Date Gabriele Solis MD [address] [place] [id number] [facility] - General 05/25/15
--- OUTSIDE RECORDS SUMMARY | 2024-05-28 17:06 | XMS_ITS | Encounter Summary ---
Author Organization [facility] Healthcare Address [address] [place] [address] Care Team Providers Care Cuff Knitter Name Role Phone Asha Cullen Unavailable Unavailable No, Physician Primary Care Provider [phone] Encounter Details Date Type Department Care Team (Late st Contact Info) Description 06/19/2019 [facility] Enrollment [facility] Warm Hand Off Program [address] [place], [place] [phone] Abimael Rivera Social History Tobacco Use Types Packs/Day Years Used Date Smoking Tobacco: Every Day Smokeless Tobacco: Never Alcohol Use Standard Drinks/Week Comments No 0 (1 standard drink = 0.6 oz pur e alcohol) PHQ-2 Answer Date Recorded PHQ-2 Score 2 01/23/2019 Sex and Gender Information Value Date Recorded Sex Assigned at Not on file Legal Sex Male 3:46 PM BLOCK ENGRAVER Gender Identity Not on file Sexual Orientation Not on file documented as of this encounter Plan of Treatment Not on file documented as of this encounter Visit Diagnoses Not on filedocumented in this encounter Additional Health Concerns Infection Onset Date Last Indicated Resolved Time COVID: Suspected 03/15/2024 03/16/2024 03/16/2024 1:47 AM BLOCK ENGRAVER documented as of this encounter Care Teams Cuff Knitter Relationship Specialty Start Date End Date No, Physician PCP - General 10/20/23 Asha Cullen Super[employer] [facility] 03/24/20 documented as of this encounter
--- OUTSIDE RECORDS SUMMARY | 2024-05-28 17:06 | XMS_ITS | Clinical Summary ---
Author Organization [facility] Address [address] [place] [address] Care Team Providers Care Deputy Insurance Commissioner Name Role Phone SubhashAsha gary Unavailable Unavailable No, Physician Primary Care Provider [phone] Allergies No known active allergies Medications buprenorphine-na [...] 12/03/2010 Back pain 07/03/2008 Abdominal pain, epigastric Encounters Date Type Department Care Team Description 03/15/2024 11:26 PM AUTOMATIC SPOOLER OPERATOR - 03/18/2024 4:43 PM AUTOMATIC SPOOLER OPERATOR Hospital Encounter [facility] [address] [place], [place] [id number] Franklin Gastelum MD Abegunde, MD Fatmata Mccann Huzaifa, MD Sargsyan, Narine, MD Dizziness (Primary Dx); Generalized weakness Discharge Disposition: Left Against Medical Advice from Last 3 Months Immunizations Immunization Administration Dates Next Due Tdap 10/20/2023 Medical History Medical History Date Comments Back pain Diabetes mellitus (HCC) Social History Tobacco Use Types Packs/Day Years Used Date Smoking Tobacco: Every Day Cigarettes Smokeless Tobacco: Never Tobacco Cessation:Ready to Q uit: Not Asked; Counseling Given: Not Answered Alcohol Use Standard Drinks/Week Comments No 0 (1 standard drink = 0.6 oz pur e alcohol) [facility] Utilities Answer Date Recorded In the past 12 months has e [employer], gas, oil, or water [employer] threatened to shut off services in your [...] often do you attend chur ch or lutheran services? Never 03/18/2024 Do you belong to any clubs o r organizations such as episcopalian groups, unions, fraternal or athletic groups, or [...] file Legal Sex Male 3:46 PM AUTOMATIC SPOOLER OPERATOR Gender Identity Not on file Sexual Orientation Not on file Obstetrics History Last Filed Vital Signs Vital Sign Reading Time Taken Comments Blood Pressure 124/69 03/18/2024 8:08 AM AUTOMATIC SPOOLER OPERATOR Pulse 59 03/18/2024 8:08 AM AUTOMATIC SPOOLER OPERATOR Temperature 37 C (98.6 F) 03/18/2024 8:08 AM AUTOMATIC SPOOLER OPERATOR Respiratory Rate 20 03/18/2024 8:08 AM AUTOMATIC SPOOLER OPERATOR Oxygen Saturation 98% 03/18/2024 8:08 AM AUTOMATIC SPOOLER OPERATOR Inhaled Oxygen Concentration - - Weight 68.9 kg (151 lb 14.4 oz) 024 12:10 PM AUTOMATIC SPOOLER OPERATOR Height 170.2 cm (5' 7 ) 03/16/2024 12:1 0 PM AUTOMATIC SPOOLER OPERATOR Body Mass Index 23.79 03/16/2024 12:10 PM AUTOMATIC SPOOLER OPERATOR Plan of Treatment Health Maintenance Due Date Last Done Comments Albumin Creatinine Ratio, Urine 1960 Colon Cancer Screening-Colonoscopy 1960 Hepatitis C Screening 1960 Prostate Cancer Screening-PSA 1961 Dilated Eye Exam 1961 Foot Exam 1961 Hepatitis B Screening 1979 Regular Well Visit/Exam 18-64 1979 Zoster Vaccine (1 of 2) 2011 Pneumococcal vaccine <65 (2 of 2 - PCV) 12/04/2011 12/03/2010 Depression Screening 01/24/2020 01/23/2019, 01/23/2019, 04/05/2018 Influenza Vaccine (#1) 2023 Hemoglobin A1C 09/14/2024 03/16/2024 Lipid Panel 03/16/2025 03/16/2024 eGFR 03/18/2025 03/18/2024, 03/03, 09/30/2022, Additional history exists DTaP/Tdap/Td Vaccine (3 - Td or Tdap) 10/19/2033 10/20/2023, 04/03/2012, 07/03/2008 Procedures Procedure Name Priority Date/Time Associated Diagnosis Comments [place] CRIT[facility] CARE ILL/INJURED PATIENT INIT 30-74 MIN Routine 03/18/2024 4:43 PM AUTOMATIC SPOOLER OPERATOR TRANSTHORACIC ECHO (TTE) COMPLETE W DOPPLER/CF WO CONTRAST W BUBBLE Routine 03/18/2024 3:25 PM AUTOMATIC SPOOLER OPERATOR POCT GLUCOSE DEVICE Routine 03/18/2024 1 1:18 AM AUTOMATIC SPOOLER OPERATOR MRI BRAIN WO CONTRAST IP Routine 03/18/2024 10:56 AM AUTOMATIC SPOOLER OPERATOR POCT GLUCOSE DEVICE Routine 03/18/2024 8 :07 AM AUTOMATIC SPOOLER OPERATOR EGFR Routine 03/18/2024 4:27 AM AUTOMATIC SPOOLER OPERATOR DIFFERENTIAL AUTO Routine 03/18/2024 4:2 7 AM AUTOMATIC SPOOLER OPERATOR CBC WITH AUTO DIFFERENTIAL Routine 03/18/2024 4:27 AM AUTOMATIC SPOOLER OPERATOR RENAL FUNCTION PANEL Routine 03/18/2024 4:27 AM AUTOMATIC SPOOLER OPERATOR POCT GLUCOSE DEVICE Routine 03/18/2024 2 :00 AM AUTOMATIC SPOOLER OPERATOR POCT GLUCOSE DEVICE Routine 03/17/2024 8 :00 PM AUTOMATIC SPOOLER OPERATOR POCT GLUCOSE DEVICE Routine 03/17/2024 4 :28 PM AUTOMATIC SPOOLER OPERATOR POCT GLUCOSE DEVICE Routine 03/17/2024 1 1:24 AM AUTOMATIC SPOOLER OPERATOR POCT GLUCOSE DEVICE Routine 03/17/2024 7 :55 AM AUTOMATIC SPOOLER OPERATOR POCT GLUCOSE DEVICE Routine 03/17/2024 1 :44 AM AUTOMATIC SPOOLER OPERATOR POCT GLUCOSE DEVICE Routine 03/16/2024 9 :21 PM AUTOMATIC SPOOLER OPERATOR POCT GLUCOSE DEVICE Routine 03/16/2024 4 :47 PM AUTOMATIC SPOOLER OPERATOR POCT GLUCOSE DEVICE Routine 03/16/2024 1 2:15 PM AUTOMATIC SPOOLER OPERATOR POCT GLUCOSE DEVICE Routine 03/16/2024 8 :39 AM AUTOMATIC SPOOLER OPERATOR DRUGS OF ABUSE SCREEN, URINE WITHOUT CONFIRMATION STAT 03/16/2024 5:59 AM AUTOMATIC SPOOLER OPERATOR URINALYSIS AND REFLEX TO MICROSCOPIC AND CULTURE STAT 03/16/2024 5:59 AM AUTOMATIC SPOOLER OPERATOR POCT GLUCOSE DEVICE Routine 03/16/2024 5 :09 AM AUTOMATIC SPOOLER OPERATOR CTA HEAD NECK W WO CONTRAST ED 03/16/2024 3:49 AM AUTOMATIC SPOOLER OPERATOR CT HEAD WO CONTRAST ED 03/16/2024 2 :39 AM AUTOMATIC SPOOLER OPERATOR HEMOGLOBIN A1C Routine 03/16/2024 12:44 AM AUTOMATIC SPOOLER OPERATOR LIPID PANEL Routine 03/16/2024 12:44 AM AUTOMATIC SPOOLER OPERATOR EGFR STAT 03/16/2024 12:44 AM AUTOMATIC SPOOLER OPERATOR DIFFERENTIAL AUTO STAT 03/16/2024 12: 44 AM AUTOMATIC SPOOLER OPERATOR COMPREHENSIVE METABOLIC PANEL STAT 03/16/2024 12:44 AM AUTOMATIC SPOOLER OPERATOR CBC WITH AUTO DIFFERENTIAL STAT 03/16/2024 12:44 AM AUTOMATIC SPOOLER OPERATOR INFLUENZA A/B, RSV, AND COVID-19 PCR Routine 03/16/2024 12:44 AM AUTOMATIC SPOOLER OPERATOR XR CHEST 1 VIEW ED 03/16/2024 12:27 AM AUTOMATIC SPOOLER OPERATOR ECG 12-LEAD STAT 03/15/2024 11:54 PM AUTOMATIC SPOOLER OPERATOR POCT GLUCOSE DEVICE Routine 03/15/2024 1 0:23 PM AUTOMATIC SPOOLER OPERATOR from Last 3 Months Results * [place] [facility]IT[facility] CARE ILL/INJURED PATIENT INIT 30-74 MIN (03/18/2024 4:43 PM AUTOMATIC SPOOLER OPERATOR) Narrative Franklin Gastelum MD - 03/18/2024 4:43 PM AUTOMATIC SPOOLER OPERATOR Franklin Gastelum MD 03/20/2024 2:55 PM Critical [...] CONTRAST W BUBBLE (03/18/2024 3:25 PM AUTOMATIC SPOOLER OPERATOR) Anatomical Region Laterality Modality Ultrasound 03/18/2024 3:00 PM AUTOMATIC SPOOLER OPERATOR Narrative 03/18/2024 4:45 PM AUTOMATIC SPOOLER OPERATOR [address] [address] Echocardiogram Report Patient Name: HUMPHREY MORALES L : 1960 Study Date: 03/18/2024 3:00:58 PM Gender: M Tech: ELOISA Location: [id number] Ref Provider: SHANNAN WEBSTER Height(Cm): BSA: Weight(Kg): [...] Federico Mckay MD 03/18/2024 4:44:45 PM AUTOMATIC SPOOLER OPERATOR 65-70 Procedure Note Federico Mckay MD - 03/18/[address] [address] Echocardiogram Report Patient Name: HUMPHREY MORALES L : 1960 Study Date: 03/18/2024 3:00:58 PM Gender: M Tech: ELOISA Location: [id number] Ref Provider: SHANNAN WEBSTER Height(Cm): BSA: Weight(Kg): [...] Federico Mckay MD 03/18/2024 4:44:45 PM AUTOMATIC SPOOLER OPERATOR 65-70 Shannan Webster NP CV ECHO PROCEDURES Final Re sult * POCT glucose (03/18/2024 11:18 AM AUTOMATIC SPOOLER OPERATOR) Glucose, POC 194 70 - 199 mg/dL Blood 03/18/2024 11:1 8 AM AUTOMATIC SPOOLER OPERATOR 03/18/2024 11:18 AM AUTOMATIC SPOOLER OPERATOR us Susie Wild MD LAB POCT ORDERABLES - DEVICE Final Result JOHANN ARNDT YAO) 1 [facility] Department [place] [address] * MRI Brain WO Contrast (03/18/2024 10:56 AM AUTOMATIC SPOOLER OPERATOR) Anatomical Region Laterality Modality Head and Neck N/A Magnetic Resonan ce 03/18/2024 12:0 0 PM AUTOMATIC SPOOLER OPERATOR Narrative 03/18/2024 12:12 PM AUTOMATIC SPOOLER OPERATOR EXAM DESCRIPTION: MRI BRAIN WO CONTRAST REASON [...] Ezio Ng M.D. ELOISA: ELOISA Report ID: [id number] Reading Location: [place] [address] Procedure Note Ezio Ng MD - 03/18/2024 [...] infarcts about the right tejada radiata, body ofthe right caudate nucleus, and [...] Ezio Ng M.D. ELOISA: ELOISA Report ID: [id number] Reading Location: [place] [address] us Eulalia Quinn MD IMG MRI PROCEDURES Final Resul t * POCT glucose (03/18/2024 8:07 AM AUTOMATIC SPOOLER OPERATOR) Glucose, POC 183 70 - 199 mg/dL Blood 03/18/2024 8:07 AM AUTOMATIC SPOOLER OPERATOR 03/18/2024 8:07 AM AUTOMATIC SPOOLER OPERATOR us Susie Wild MD LAB POCT ORDERABLES - DEVICE Final Result JOHANN ARNDT ([place]) 1 [facility] Department [place] [address] * eGFR (03/18/2024 4:27 AM AUTOMATIC SPOOLER OPERATOR) eGFR >90 >=60 mL/min/1. 73 m2 Comment: [...] reviewed 2021. Blood 03/18/2024 4:27 AM AUTOMATIC SPOOLER OPERATOR 03/18/2024 4:55 AM AUTOMATIC SPOOLER OPERATOR us Corrina Avilez MD LAB BLOOD ORDERABLES Final Re sult [facility] ([place]) 1 [facility] Department [place] [address] * Differential, auto (03/18/2024 4:27 AM AUTOMATIC SPOOLER OPERATOR) Neutrophil abs 3.9 1.5 - 6.5 K/cumm Imm gran abs 0.0 0.0 - 0.1 K/cumm [facility] ([place]) Lymphocyte abs 3.0 0.8 - 3.3 K/cumm [facility] ([place]) Monocyte abs 0.6 0.2 - 0.8 K/cumm [...] on 2017. Blood 03/18/2024 4:27 AM AUTOMATIC SPOOLER OPERATOR 03/18/2024 4:55 AM AUTOMATIC SPOOLER OPERATOR us Corrina Avilez MD LAB BLOOD ORDERABLES Final Re sult JOHANN ARNDT (YAO) 1 [facility] Department [place] [address] * (ABNORMAL) CBC with auto differential (03/18/2024 4:27 AM AUTOMATIC SPOOLER OPERATOR) WBC 7.7 3.8 - 9.9 K/cumm Hgb [...] [facility] (YAO) Blood 03/18/2024 4:27 AM AUTOMATIC SPOOLER OPERATOR 03/18/2024 4:55 AM AUTOMATIC SPOOLER OPERATOR us Corrina Avilez MD LAB BLOOD ORDERABLES Final Re sult [facility] ([place]) 1 [facility] Department [place] [address] * (ABNORMAL) Renal function panel (03/18/2024 4:27 AM AUTOMATIC SPOOLER OPERATOR) Sodium 140 135 - 145 mmol/L Potassium, [...] [facility] (YAO) Blood 03/18/2024 4:27 AM AUTOMATIC SPOOLER OPERATOR 03/18/2024 4:55 AM AUTOMATIC SPOOLER OPERATOR Corrina Avilez MD LAB BLOOD ORDERABLES Final Re sult [facility] ([place]) 1 [facility] [place] [address] * POCT glucose (03/18/2024 2:00 AM AUTOMATIC SPOOLER OPERATOR) Glucose, POC 109 70 - 199 mg/dL Blood 03/18/2024 2:00 AM AUTOMATIC SPOOLER OPERATOR 03/18/2024 2:00 AM AUTOMATIC SPOOLER OPERATOR Corrina Avilez MD LAB POCT ORDERABLES - DEVICE Final Result [facility] ([place]) 1 [facility] [place] [address] * (ABNORMAL) POCT glucose (03/17/2024 8:00 PM AUTOMATIC SPOOLER OPERATOR) Glucose, POC 218(H) 70 - 199 mg/dL Blood 03/17/2024 8:00 PM AUTOMATIC SPOOLER OPERATOR 03/17/2024 8:00 PM AUTOMATIC SPOOLER OPERATOR us Corrina Avilez MD LAB POCT ORDERABLES - DEVICE Final Result JOHANN ARNDT ([place]) 1 [facility] [place] [address] * POCT glucose (03/17/2024 4:28 PM AUTOMATIC SPOOLER OPERATOR) Glucose, POC 196 70 - 199 mg/dL Blood 03/17/2024 4:28 PM AUTOMATIC SPOOLER OPERATOR 03/17/2024 4:28 PM AUTOMATIC SPOOLER OPERATOR us Corrina Avilez MD LAB POCT ORDERABLES - DEVICE Final Result Performing Organization Address City/[facility]/ZIP Co de Phone Number JOHANN ARNDT ([place]) 1 [facility] [place] [address] * POCT glucose (03/17/2024 11:24 AM AUTOMATIC SPOOLER OPERATOR) Glucose, POC 194 70 - 199 mg/dL Blood 03/17/2024 11:2 4 AM AUTOMATIC SPOOLER OPERATOR 03/17/2024 11:24 AM AUTOMATIC SPOOLER OPERATOR us Corrina Avilez MD LAB POCT ORDERABLES - DEVICE Final Result Performing Organization Address City/[facility]/ZIP Co de Phone Number JOHANN ARNDT ([place]) 1 [facility] [employer] [place] [address] * POCT glucose (03/17/2024 7:55 AM AUTOMATIC SPOOLER OPERATOR) Glucose, POC 144 70 - 199 mg/dL Blood 03/17/2024 7:55 AM AUTOMATIC SPOOLER OPERATOR 03/17/2024 7:55 AM AUTOMATIC SPOOLER OPERATOR us Corrina Avilez MD LAB POCT ORDERABLES - DEVICE Final Result JOHANN ARNDT ([place]) [address] [place] [address] * POCT glucose (03/17/2024 1:44 AM AUTOMATIC SPOOLER OPERATOR) Glucose, POC 145 70 - 199 mg/dL Blood 03/17/2024 1:44 AM AUTOMATIC SPOOLER OPERATOR 03/17/2024 1:44 AM AUTOMATIC SPOOLER OPERATOR us Corrina Avilez MD LAB POCT ORDERABLES - DEVICE Final Result JOHANN ARNDT ([place]) 1 [place] [address] * (ABNORMAL) POCT glucose (03/16/2024 9:21 PM AUTOMATIC SPOOLER OPERATOR) Glucose, POC 241(H) 70 - 199 mg/dL Blood 03/16/2024 9:21 PM AUTOMATIC SPOOLER OPERATOR 03/16/2024 9:21 PM AUTOMATIC SPOOLER OPERATOR us Corrina Avilez MD LAB POCT ORDERABLES - DEVICE Final Result JOHANN ARNDT ([place]) 1 [facility] [place] [address] * (ABNORMAL) POCT glucose (03/16/2024 4:47 PM AUTOMATIC SPOOLER OPERATOR) Glucose, POC 217(H) 70 - 199 mg/dL Blood 03/16/2024 4:47 PM AUTOMATIC SPOOLER OPERATOR 03/16/2024 4:47 PM AUTOMATIC SPOOLER OPERATOR us Corrina Avilez MD LAB POCT ORDERABLES - DEVICE Final Result [facility] ([place]) 1 [facility] [place] [address] * (ABNORMAL) POCT glucose (03/16/2024 12:15 PM AUTOMATIC SPOOLER OPERATOR) Glucose, POC 293(H) 70 - 199 mg/dL Blood 03/16/2024 12:1 5 PM AUTOMATIC SPOOLER OPERATOR 03/16/2024 12:15 PM AUTOMATIC SPOOLER OPERATOR us Corrina Avilez MD LAB POCT ORDERABLES - DEVICE Final Result Performing Organization Address City/[facility]/ZIP Co de Phone Number JOHANN ARNDT ([place]) 1 [place] [address] * POCT glucose (03/16/2024 8:39 AM AUTOMATIC SPOOLER OPERATOR) Glucose, POC 199 70 - 199 mg/dL Blood 03/16/2024 8:39 AM AUTOMATIC SPOOLER OPERATOR 03/16/2024 8:39 AM AUTOMATIC SPOOLER OPERATOR Corrina Avilez MD LAB POCT ORDERABLES - DEVICE Final Result Performing Organization Address [facility] de Phone Number JOHANN ARNDT ([place]) 1 [place] [address] * (ABNORMAL) Urinalysis reflex to microscopic and culture Urine (03/16/2024 5:59 AM AUTOMATIC SPOOLER OPERATOR) Color, ur Yellow Yellow Clarity, ur Clear [...] tendency for uric acid stone formation. Source: [facility] [employer] Current Interpretive Data was last revised on 2017 Protein, ur ql Trace Negative [facility] (YAO) Glucose, ur ql 4+(A) Negative [facility] ([place]) Ketones, ur Negative Negative [facility] (YAO) Bilirubin, ur Negative Negative [facility] ([place]) Blood, ur Negative Negative [facility] ([place]) Urobilinogen, ur <2.0 <2.0 mg/dL [facility] ([place]) Nitrite, ur Negative Negative [facility]ER A (YAO) Leukocyte esterase, ur Negative Negative [facility] ([place]) UA reflex comment Reflex conditions for microscopic UA and culture not met. [facility] (YAO) Urine 03/16/2024 5:59 AM AUTOMATIC SPOOLER OPERATOR 03/16/2024 6:03 AM AUTOMATIC SPOOLER OPERATOR Franklin Gastelum MD LAB MICROBIOLOGY - GENERAL O RDERABLES Final Result [facility] ([place]) 1 [facility] Department [place] [address] * (ABNORMAL) Drugs of Abuse Screen, Urine without Confirmation (03/16/2024 5:59 AM AUTOMATIC SPOOLER OPERATOR) Amphetamine, ur Screen Positive, presumptive (A) CutOff [...] 2022. Opiates, ur Not Detected CutOff 300ng/mL [facility] ([place]) Comment: Interpretive Data - Opiates: Samples containing greater than 300 ng/mL morphine or other cross-reacting compounds are reported as positive. False positive and false negative results are possible. Confirmatory testing required for definitive results. Current Interpretive Data was last reviewed 2022. Oxycodone, ur Not Detected CutOff 100ng/mL [facility] ([place]) Comment: Interpretive Data - Oxycodone: Samples containing greater than 100 ng/mL oxycodone or other cross-reacting compounds are reported as positive. False positive and false negative results are possible. Confirmatory testing required for definitive results. Current Interpretive Data was last reviewed 2022. Phencyclidine, ur Not Detected CutOff 25 ng/mL [facility] ([place]) Comment: Interpretive Data - Phencyclidine: Samples containing greater than 25 ng/mL phencyclidine or other cross-reacting compounds are reported as positive. False positive and false negative results are possible. Confirmatory testing required for definitive results. Current Interpretive Data was last reviewed 2022. Urine Creatinine 76 mg/dL MY ARNDT ([place]) Comment: Interpretive Data Urine Creatinine: < 10 mg/dL is extremely dilute = or > 10 but < 20 mg/dL is dilute = or > 20 mg/dL is normal Current Interpretive Data was last revised on 2017. Urine 03/16/2024 5:59 AM AUTOMATIC SPOOLER OPERATOR 03/16/2024 6:03 AM AUTOMATIC SPOOLER OPERATOR Narrative JOHANN ARNDT ([place]) - 03/16/2024 6:50 AM AUTOMATIC SPOOLER OPERATOR Drug of Abuse screening is performed by immunoassay for medical purposes only. This is not to be used for Pain Management purposes. Franklin Gastelum MD LAB URINE ORDERABLES Final R esult Performing Organization Address City/[facility]/ZIP Co de Phone Number JOHANN ARNDT ([place]) 1 [facility] [employer] [place] [address] * (ABNORMAL) POCT glucose (03/16/2024 5:09 AM AUTOMATIC SPOOLER OPERATOR) Glucose, POC 356(H) 70 - 199 mg/dL Blood 03/16/2024 5:09 AM AUTOMATIC SPOOLER OPERATOR 03/16/2024 5:09 AM AUTOMATIC SPOOLER OPERATOR Theresa Benitez MD LAB POCT ORDERABLES - DE VICE Final Result JOHANN ARNDT ([place]) 1 [facility] [place] [address] * CTA Head Neck W WO Contrast (03/16/2024 3:49 AM AUTOMATIC SPOOLER OPERATOR) Anatomical Region Laterality Modality Head and Neck N/A Computed Tomogra phy 03/16/2024 4:14 AM AUTOMATIC SPOOLER OPERATOR Narrative 03/16/2024 4:36 AM AUTOMATIC SPOOLER OPERATOR EXAM DESCRIPTION: CTA HEAD NECK W WO [...] March 16, 2014 . FINDINGS: INTRACRANIAL VESSELS [place]: The zkeluo-rj-Iibsgs is intact. ANTERIOR CIRCULATION: The carotid siphons [...] by Riya Schuster M.D. SN: Report ID: [id number] Reading Location: [place] [address] Procedure Note Riya Schuster MD - 03/16/2024 [...] March 16, 2014 . FINDINGS: INTRACRANIAL VESSELS [place]: The xywvqx-oq-Yfvnso is intact. ANTERIOR CIRCULATION: The carotid siphons [...] by Riya Schuster M.D. SN: Report ID: [id number] Reading Location: [place] [address] Franklin Gastelum MD IMG CT PROCEDURES Final Resu lt * CT Head WO Contrast (03/16/2024 2:39 AM AUTOMATIC SPOOLER OPERATOR) Anatomical Region Laterality Modality Head and Neck N/A Computed Tomogra phy 03/16/2024 2:49 AM AUTOMATIC SPOOLER OPERATOR Narrative 03/16/2024 2:52 AM AUTOMATIC SPOOLER OPERATOR EXAM DESCRIPTION: CT HEAD WO CONTRAST REASON [...] by Riya Schuster M.D. SN: Report ID: [id number] Reading Location: [place] [address] Procedure Note Riya Schuster MD - 03/16/2024 [...] by Riya Schuster M.D. SN: Report ID: [id number] Reading Location: [id number] Franklin Gastelum MD IMG CT PROCEDURES Final Resu lt * Influenza A/B, RSV, and COVID-19 PCR Nasopharyngeal (03/16/2024 12:44 AM AUTOMATIC SPOOLER OPERATOR) COVID-19 RNA Negative Negative Influenza A RNA Negative Negative [facility] ([facility]) Influenza B RNA Negative Negative [facility] ([facility]) RSV RNA Negative Negative [facility] ([place]) Comment: Interpretive data: Testing performed by [facility]. This test is performed using the [employer] Xpert Xpress CoV-2/Flu/RSV plus assay. This is a multiplex, real- time reverse transcriptase PCR assay intended for the qualitative detection of nucleic acid from SARS-CoV-2, influenza A, influenza B, and respiratory syncytial virus. This assay has been cleared by the [place] Food and Drug administration. The performance characteristics have been verified by the [facility]. Results must be considered in the clinical context, and a negative result does not rule out infection. Interpretive Data last revised 2023 Nasopharyngeal 03/16/2024 12 :44 AM AUTOMATIC SPOOLER OPERATOR 03/16/2024 12:52 AM AUTOMATIC SPOOLER OPERATOR Narrative JOHANN OroscoROBINS) - 03/16/2024 1:46 AM AUTOMATIC SPOOLER OPERATOR Is the Patient experiencing symptoms consistent with COVID?->Unknown Franklin Gastelum MD LAB MICROBIOLOGY - GENERAL O RDERABLES Final Result JOHANN ARNDT ([place]) 1 [facility] Department [place] [address] * eGFR (03/16/2024 12:44 AM AUTOMATIC SPOOLER OPERATOR) eGFR >90 >=60 mL/min/1. 73 m2 Comment: [...] 2021. Blood 03/16/2024 12:4 4 AM AUTOMATIC SPOOLER OPERATOR 03/16/2024 12:52 AM AUTOMATIC SPOOLER OPERATOR us Franklin Gastelum MD LAB BLOOD ORDERABLES Final R esult [facility] ([place]) 1 [facility] Department [place] [address] * (ABNORMAL) Differential, auto (03/16/2024 12:44 AM AUTOMATIC SPOOLER OPERATOR) Neutrophil abs 8.1(H) 1.5 - 6.5 K/cumm [...] 2017. Blood 03/16/2024 12:4 4 AM AUTOMATIC SPOOLER OPERATOR 03/16/2024 12:52 AM AUTOMATIC SPOOLER OPERATOR us Franklin Gastelum MD LAB BLOOD ORDERABLES Final R esult [facility] ([place]) 1 [facility] Department [place] [address] * (ABNORMAL) CBC with auto differential (03/16/2024 12:44 AM AUTOMATIC SPOOLER OPERATOR) WBC 11.8(H) 3.8 - 9.9 K/cumm Hgb 16.3 13.0 - 17.5 g/dL [facility] ([place]) Hct 47.5 38.9 - 50.3 % [facility] ([place]) Plt 233 150 - 400 K/cumm [facility] ([place]) MPV 9.1 9.1 - 12.3 fL [facility] ([place]) RBC 5.11 4.30 - 5.80 M/cumm [facility] ([place]) MCV 93.0 81.3 - 96.4 fL [facility] ([place]) MCH 31.9 27.1 - 33.3 pg [facility] ([place]) MCHC 34.3 32.3 - 35.7 g/dL [facility] ([place]) RDW CV 11.6 11.1 - 14.9 % [facility] ([place]) RDW SD 39.8 35.7 - 48.1 fL [facility] ([place]) NRBC abs 0.00 0.00 - 0.01 K/cumm [facility] ([place]) Blood 03/16/2024 12:4 4 AM AUTOMATIC SPOOLER OPERATOR 03/16/2024 12:52 AM AUTOMATIC SPOOLER OPERATOR Franklin Gastelum MD LAB BLOOD ORDERABLES Final R esult Performing Organization Address [facility] Co de Phone Number JOHANN ARNDT ([place]) 1 [facility] [place] [address] * (ABNORMAL) Hemoglobin A1c (03/16/2024 12:44 AM AUTOMATIC SPOOLER OPERATOR) Hgb A1C 10.4(H) 4.0 - 5.6 % Estimated Average Glucose 252 mg/dL [facility] ([place]) Comment: The ADA recommends reporting an estimated Average Glucose (eAG) with all Hemoglobin A1c results using the equation derived from a study of 507 normal and diabetic adults. Minority populations were underrepresented and children were not included. (Diabetes Care 31:8733-2076, 2008). The eAG is not equivalent to a fasting glucose. Blood 03/16/2024 12:4 4 AM AUTOMATIC SPOOLER OPERATOR 03/16/2024 3:46 PM AUTOMATIC SPOOLER OPERATOR Corrina Avilez MD LAB BLOOD ORDERABLES Final Re sult Performing Organization Address [facility] Co de Phone Number JOHANN ARNDT ([place]) 1 [place] [address] * (ABNORMAL) Lipid panel (03/16/2024 12:44 AM AUTOMATIC SPOOLER OPERATOR) Cholesterol 256(H) 30 - 199 mg/dL Comment: [...] on 2017. Triglycerides 128 <=149 mg/dL JOHANN ARNDT ([place]) Comment: Interpretive Data [...] 3. Sher Washington et al. JOSIE Cardiol. 2020 August 01;5(5):540-548. doi: [email or web address] Current Interpretive Data was last revised on 2023. Non-HDL Cholesterol 196 mg/dL [facility] ([place]) Comment: Interpretive Data Ages < or [...] on 2017. Chol/HDL ratio 4 [facility] ([place]) Blood 03/16/2024 12:4 4 AM AUTOMATIC SPOOLER OPERATOR 03/16/2024 10:58 AM AUTOMATIC SPOOLER OPERATOR us Eulalia Quinn MD LAB BLOOD ORDERABLES Final Res ult [facility] ([facility]) 1 [facility] Department of Laboratories [place], [place] [id number] * (ABNORMAL) Comprehensive metabolic panel (03/16/2024 12:44 AM AUTOMATIC SPOOLER OPERATOR) Sodium 134(L) 135 - 145 mmol/L Potassium, pl 3.9 3.3 - 4.9 mmol/L [facility] ([facility]) Chloride 99 97 - 110 mmol/L [facility] ([facility]) CO2 26 22 - 32 mmol/L [facility] ([facility]) Anion gap 9 2 - 15 mmol/L [facility] ([facility]) BUN 14 6 - 25 mg/dL [facility] ([facility]) Creatinine 0.61(L) 0.80 - 1.30 [...] classification and Diagnosis of Diabetes Diabetes Care 202; 46: S19-S40. Current interpretive data was last [...] pecimen Blood 03/16/2024 12:4 4 AM AUTOMATIC SPOOLER OPERATOR 03/16/2024 12:52 AM AUTOMATIC SPOOLER OPERATOR us Franklin Gastelum MD LAB BLOOD ORDERABLES Final R esult JOHANN ARNDT (YAO) 1 [facility] Department [place] [address] * XR Chest 1 Vw Portable (03/16/2024 12:27 AM AUTOMATIC SPOOLER OPERATOR) Anatomical Region Laterality Modality Body, Chest N/A Computed Radiogr aphy 03/16/2024 12:3 7 AM AUTOMATIC SPOOLER OPERATOR Narrative 03/16/2024 12:37 AM AUTOMATIC SPOOLER OPERATOR EXAM DESCRIPTION: XR CHEST 1 VIEW REASON [...] Gianni Churchill M.D. KT: JM Report ID: [id number] Reading Location: [id number] Procedure Note Gianni Churchill MD - 03/16/2024 [...] Gianni Churchill M.D. KT: JM Report ID: [id number] Reading Location: [id number] us Franklin Gastelum MD IMG XR PROCEDURES Final Resu lt * ECG 12 lead (03/15/2024 11:54 PM AUTOMATIC SPOOLER OPERATOR) 03/15/2024 11:5 4 PM AUTOMATIC SPOOLER OPERATOR Narrative [facility] - 03/16/2024 11:26 AM AUTOMATIC SPOOLER OPERATOR Vent Rate: 60 bpm RR Interval: 995 msec [place] Interval: 169 msec QRS Duration: 84 msec QT Interval: 426 msec QTC Interval: 426 msec P-R-T [place]: 48 - -4 - 57 degrees IMPRESSION: SINUS RHYTHM NORMAL ECG Electronically Signed By: Dr. Manpreet Mead Franklin Gastelum MD ECG ORDERABLES Final Result [facility] * (ABNORMAL) POCT glucose (03/15/2024 10:23 PM AUTOMATIC SPOOLER OPERATOR) [facility] Signature Glucose, POC 241(H) 70 - 199 mg/dL Blood 03/15/2024 10:2 3 PM AUTOMATIC SPOOLER OPERATOR 03/15/2024 10:23 PM AUTOMATIC SPOOLER OPERATOR Notinfile Unknown LAB POCT ORDERABLES - DEVICE F inal Result Performing Organization Address City/[facility] Co de Phone Number JOHANN [facility] (ROBINS) 1 [facility] Department [place] [address] from Last 3 Months Insurance [facility] PLAN [place] [id number] [employer] [facility] Advance Directives For more information, please contact: [phone] * Full Code (Latest Code Status on File) Date Activated Date Inactivated Comments 03/16/2024 4:55 AM 03/18/2024 8:48 PM * Full Code Date Activated Date Inactivated Comments 01/25/2019 8:31 AM 01/26/2019 1:44 PM Care Teams Deputy Insurance Commissioner Relationship Specialty Start Date End Date No, Physician PCP - General 10/20/23 Asha Cullen Bogger Operator Addiction Medicine 03/24/20
--- OUTSIDE RECORDS SUMMARY | 2024-05-28 17:06 | XMS_ITS | Encounter Summary ---
Author Organization [facility] Healthcare Address [address] [place] [address] Care Team Providers Care Hand Spring Repairer Helper Name Role Phone Asha Cullen Unavailable Unavailable No, Physician Primary Care Provider [phone] Encounter Details Date Type Department Care Team (Late st Contact Info) Description 05/23/2021 [facility] Enrollment [facility] Warm Hand Off Program [address] [place], [place] [phone] Melanie Maldonado Social History Tobacco Use Types Packs/Day Years Used Date Smoking Tobacco: Every Day Cigarettes Smokeless Tobacco: Never Alcohol Use Standard Drinks/Week Comments No 0 (1 standard drink = 0.6 oz pur e alcohol) PHQ-2 Answer Date Recorded PHQ-2 Score 2 01/23/2019 Sex and Gender Information Value Date Recorded Sex Assigned at Not on file Legal Sex Male 3:46 PM AIRCRAFT MACHINIST HELPER Gender Identity Not on file Sexual Orientation Not on file documented as of this encounter Progress Notes * Asha Cullen - 05/25/2021 3:27 PM CST Data and Referral Assessments are completed retroactively for Warm Hand Off Program data RAFT MACHINIST HELPER * Melanie Maldonado - 05/23/2021 11:51 AM CST Pt reports he has been using 2-4 beans of Fentanyl (IN) daily for the past week, previously clean on Suboxone for 6 months. Pt states that prior to 6 months ago, he had been using ~18 beans of Fentanyl daily. Last use was 72 hrs ago at time of Fentanyl overdose. Pt reports he uses occasional methamphetamine. Pt denies IVDU. Screening What screening methods were used? What were the results of the screening methods? PHQ: 14 With Pt identifying lack of sleep, decreased appetite, feelings of guilt regarding continued drug use and recent relapse, feelings of depression & hopelessness. COWS: 16, CINA: 13 with reports of nausea, vomiting, barely perceptible sweating, anxiety, body aches, and irritation DAST: 8 Pt identifies that he often uses more than one drug at a time, often taking meth to aid in Fentanyl withdrawal. Pt identifies feelings of shame regarding his drug use and admits that his family has often complained about his drug use - attributes the deterioration of his marriage 3 yrs ago to drug use. Pt denies use of alcohol. Pt denies SI, HI, AVH. Pt does not appear to be experiencing sx of psychosis. Brief Intervention What was discussed with the patient? What stage of change are they in? What are some barriers to treatment? Pt reports he is currently legally but for 3 yrs, denies other intimate relationships. Pt states he has an 8th grade education and completed some of the 9th grade, worked at [employer] for almost 20 years before back injuries led to disability. Pt has one child (adult daughter) and adopted his grandson. Pt states he does not have an income currently and lives off his mother's income. Pt reports he currently lives with his mother and would like to work or apply for disability in the future. Pt states he had been clean for 6 months on Suboxone but last week, he relapsed on Fentanyl 3 days ago. 6 months ago, he also overdosed. Pt reports he had been prescribed narcotics in the past and became addicted to pain medication, eventually cut off and turned to Fentanyl. Pt states that he had been prescribed Suboxone by Dr. Fallon at [facility] but was let go of their service due to missed appts. Ptstates that he had used Fentanyl for 3-4 yrs altogether and also has intermittently used methamphetamine. Pt reports that at times, he smokes marijuana but this is infrequent. Pt states that he has along hx of inpt tx but cannot identify last facility in which he admitted. Pt reports that he had ab used alcohol for many years but stopped drinking at age of 38. Pt reports several DUIs in the past but that's all been taken care of . Pt states that he has attended Alcoholics Anonymous in the pastbut he was not yet ready to change behaviors. Pt denies current legal issues. Pt denies hx of mental health dx but states that a psychiatrist once spoke to him and would't ever let him return to work. Pt denies hx of suicide attempts and/or hospitalizations for psychiatric concerns. Pt denies family hx of KRISTINA. Strengths - communicates effectively, domiciled, transportation, insurance, established PCP, previous exposure to tx, family support, insightful, motivated for outpatient tx at this time Barriers - lack of income, lack of peer support, previous noncompliance with outpatient appts for MEDICATION ASSISTED TREATMENT, polysubstance use Stage of change - Maintenance following a recent, short-lived relapse NOTE - For reasons unclear, Pt was dishonest about previously being engaged in Warm Handoff services. Referral to Treatment What are the next steps? What is the treatment plan? When is their appointment? What resources were given? Pt given resources regarding SAMHSA, NA, AA, Suicide prevention, [facility], [facility], Warm Handoff office & peer contact information. Discussed case w/PUBLICATION DISTRIBUTOR Ras, recommend 4-1mg Suboxone BID which is in alignment with dosage previouslyprescribed by prior MEDICATION ASSISTED TREATMENT provider Pt declines transportation at this time. Follow-up Appointment Date Time Location Phone 05/26/2021 [address] [place] [address] [facility] Prescription Was the patient prescribed buprenorphine/naloxone? YES Buprenorphine/naloxone dose: 4-1mg Directions: DISSOLVE ONE FILM UNDER TONGUE BID Quantity: 6 STRIPS Was naloxone hcl nasal spray 4mg prescribed? YES Prescribed by: RAS ROMEO NP/KAT ARZATE MD Pharmacy: [facility] RAFT MACHINIST HELPER documented in this encounter Plan of Treatment Not on file documented as of this encounter Visit Diagnoses Not on filedocumented in this encounter Additional Health Concerns Infection Onset Date Last Indicated Resolved Time COVID: Suspected 03/15/2024 03/16/2024 03/16/2024 1:47 AM AIRCRAFT MACHINIST HELPER documented as of this encounter Care Teams Hand Spring Repairer Helper Relationship Specialty Start Date End Date No, Physician PCP - General 10/20/23 Asha Cullen Commercial Tire Service Technician Addiction Medicine 03/24/20 documented as of this encounter
--- OUTSIDE RECORDS SUMMARY | 2024-05-28 17:06 | XMS_ITS | Clinical Summary ---
Author Organization [facility] Address [address] [place] [address] Care Team Providers Care Baling Machine Tender Name Role Phone Gabriele Solis MD Primary Care Provider [phone] Allergies Active Allergy Reactions Criticality Noted Date Comments Duloxetine Other (See Comments) 05/27/2015 Urine retention Metformin Abdominal Pain Low 04/14/2014 Sitagliptin Rash Low 01/29/2015 Medications blood sugar diagnostic Strip CHECK THREE TIMES A DAY 100 Strip 3 1 Active Insulin Greenleaf, Disposable, (BD Ultra-Fine Orig Pen Needle) 29 gauge x 1/2 Needle Qd with isulin 30 Each 3 2 Active buprenorphine-n alOXone (Suboxone) 8-2 mg filmIndications :Opioid dependence with withdrawal (CMS/HCC) Place 1 Strip under tongue daily. 7 Strip 2 Active metFORMIN (GLUCOPHAGE) 500 mg tablet Take 1 Tablet (500 mg) by mouth 2 times daily with meals. 60 Tablet 3 2 Active insulin glargine (Basaglar KwikPen U-100 Insulin) 100 unit/mL pen syringe Inject 20 Units by subcutaneous injection daily. 15 mL 3 2 Active Active Problems Patient Care Coordination No te Formatting of this note migh t be different from the original. Prev 06/05/17 Problem Noted Date Diagnosed Date Chewing tobacco dependence 04/13/2016 Chronic pain 12/13/2012 Hyperlipidemia 05/16/2011 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 12/03/2010 Back pain 07/03/2008 Resolved Problems Problem Noted Date Diagnosed Date Resolved Date Tobacco use disorder 07/03/2008 010 Immunizations Immunization Administration Dates Next Due (ADACEL/BOOSTRIX)(10 YR UP) TDAP VACCINE, 0.5ML, IM 04/03/2012 (PNEUMOVAX 23)(50 YRS UP) PN EUMOCOCCAL POLYSACCHARIDE (PPV23) 0.5 ML, IM 12/03/2010 (TDVAX)(7 YRS UP) TETANUS AN D DIPHTHERIA TOXOIDS, ADSORBED (2 LF OF TETANUS TOXOID AND 2 LF OF DIPHTHERIA TOXOID), 0.5ML (PF), IM 07/03/2008 Family History Medical History Relation Name Comments Healthy Father Healthy Mother Relation Name Status Comments Brother 1 Alive healthy Brother 2 Alive healthy Father Alive Mother Alive Sister 1 Alive healthy Sister 2 Alive healthy Social History Tobacco Use Types Packs/Day Years Used Date Smoking Tobacco: Former Cigarettes 2 20 0 05/25/1989 - 05/25/2009 Smokeless Tobacco: Current Chew Alcohol Use Standard Drinks/Week Comments No 0 (1 standard drink = 0.6 oz pur e alcohol) Sex and Gender Information Value Date Recorded Sex Assigned at Not on file Legal Sex Male 4:17 AM COOK SHIP Gender Identity Not on file Sexual Orientation Not on file 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 Not on file Not on file Not on file Last Filed Vital Signs Vital Sign Reading Time Taken Comments Blood Pressure 130/60 09/23/2020 3:39 PM CDT Pulse 75 09/23/2020 3:39 PM CDT Temperature 37.1 C (98.7 F) 09/23/2020 3:39 PM CDT Respiratory Rate - - Oxygen Saturation 98% 09/23/2020 3:39 PM CDT Inhaled Oxygen Concentration - - Weight 76.2 kg (168 lb) 05/20/2021 12:53 PM COOK SHIP Height 170.2 cm (5' 7 ) 05/20/2021 12:53 PM COOK SHIP Body Mass Index 26.31 05/20/2021 12:53 PM COOK SHIP Plan of Treatment Health Maintenance Due Date Last Done Comments COLORECTAL SCREENING 2006 Colorectal Cancer Screening 2006 FIT-DNA Q 3 years 2006 FIT/FOBT Q 1 year 2006 Flex Sig/CT Colonography Q 5 years 2006 ZOSTER VACCINE (1 of 2) 2011 PNEUMOCOCCAL VACCINE 0-64 YE ARS (2 of 2 - PCV) 12/04/2011 12/03/2010 DIABETES ANNUAL RETINAL EXAM 01/12/2012 01/11/2011 DIABETES MICROALBUMIN ANNUAL SCREEN 09/01/2016 09/02/2015, 10/26/2014, 06/22/2013, Additional history exists LDL CHOLESTEROL ANNUAL 09/04/2018 8, 07/20/2016, 12/23/2015, Additional history exists DIABETES HBA1C Q 6 MONTHS 04/12/20192018, 09/04/2017, 09/04/2017, Additional history exists RSV VACCINE (60+ or ) (1 - Risk 60-74 years 1-dose series) 2021 DIABETES ANNUAL FOOT EXAM 09/23/20212020, 10/22/2018, 10/13/2017, Additional history exists DTAP/TDAP/TD VACCINES (2 - T d or Tdap) 04/03/2022 04/03/2012, 07/03/2008 INFLUENZA VACCINE (#1) 2023 Procedures Procedure Name Priority Date/Time Associated Diagnosis Comments LIPID PANEL Routine 09/04/2017 HEMOGLOBIN A1C Routine 09/04/2017 MICROALBUMIN/CREATI NINE RATIO, RANDOM UR Routine 09/02/2015 2:25 PM CDT Type 2 diabetes mellitus with diabetic polyneuropathy ([facility]/HCC) from Last 3 Months or Most Recently Relevant to Health Maintenance Results * (ABNORMAL) HEMOGLOBIN A1C (09/04/2017) ABSTRACTED HGB A1C EXTERNAL LAB HEMOGLOBIN A1C 8.7(A) 4.4 - 6.4 % EXTERNAL LAB HEMOGLOBIN A1C EXTERNAL LAB GLUCOSE, MEAN BLOOD EXTERNAL LAB Blood 09/04/2017 us Abstract Provider CHEMISTRY ORDERABLES Final Res ult EXTERNAL LAB * LIPID PANEL (09/04/2017) ABSTRACTED CHOLESTEROL [facility] INTERNAL MEDICINE ABSTRACTED TRIGLYCERIDE [facility] INTERNAL MEDICINE ABSTRACTED HDL [facility] INTERNAL MEDICINE ABSTRACTED LDL CALCULATED [facility] INTERNAL MEDICINE CHOLESTEROL 195 140 - 199 mg/dL [facility] INTER[facility] MEDICINE TRIGLYCERIDE 100 0 - 149 mg/dL [facility] INTER[facility] MEDICINE HDL 49 40 - 135 mg/dL [facility] INTERNAL MEDICINE LDL CALCULATED 20 5 - 55 mg/dL [facility] INTERNAL MEDICINE Blood 09/04/2017 us Abstract Provider CHEMISTRY ORDERABLES Final Res ult [facility] INTERNAL MEDICINE [id number] [place] [id number] * (ABNORMAL) MICROALBUMIN/CREATININE RATIO, RANDOM UR (09/02/2015 2:25 PM CDT) MICROALBUMIN, URINE 2.0 mg/dL 09/02/2015 6:06 PM CDT [facility] CREATININE, URINE 308.8(H) 40.0 - 278.0 mg/dL 09/02/2015 6:06 PM CDT [facility] Comment: Reference Range varies with fluid intake and diet. MICROALBUMIN/CR EAT RATIO, UR 6.5 0.0 - 29.0 mg/g Creatinine 09/02/2015 6:06 PM CDT [facility] Comment: Condition mg/g Creatinine Normal Males <17 Normal Females <25 Microalbuminuria Males 17-299 Microalbuminuria Females 25-299 Overt proteinuria >=300 Urine URINE SPECIMEN OBTAINED BY CLEAN CATCH PROCEDURE / Unknown Collection / Unknown 09/02/2015 2:25 PM CDT 09/02/2015 2:25 PM CDT us Otilia REZA URINE ORDERABLES Final Result [email or web address] CLIA# [id number] [facility] [place] [address] from Last 3 Months or Most Recently Relevant to Health Maintenance Care Teams Baling Machine Tender Relationship Specialty Start Date End Date Gabriele Solis MD PCP - General 07/03/08
== END 2024-05-28 15:48 | disposition home or self-care (01) ==
PROVIDERS: Emergency Provider Nurse Practitioner
DX: J10.1 Influenza due to other identified influenza virus with other respiratory manifestations (principal); Z20.822 Contact with and (suspected) exposure to COVID-19; F17.290 Nicotine dependence, other tobacco product, uncomplicated
CPT/HCPCS: 87426; 87804; 99203; G0463